=== PATIENT | male | born 1965 | race Caucasian/White ===

== ENCOUNTER 2022-02-13 11:42 | Outpatient (CLI) | payer OTHER, SELFPAY ==
--- NOTE | ~2022-02-13 | NM_ITS ---
EXAMINATION: NM bone scan whole body DATE: 02/13/2022 14:47 INDICATION: Prostate cancer. Assess treatment. TECHNIQUE: 23.1 mCi Tc-99m HDP was administered intravenously. Delayed whole-body scintigrams were o btained. COMPARISON: There are no other imaging studies at our institution. No other outside imaging provided for comparison. FINDINGS: There are multiple nonarticular foci of mild to moderate increased uptake involving multiple ribs, at the right humeral head, bilateral coracoid processes, at the sternum, scattered in the pelvis and at small regions along the bilateral humeral and femoral diaphyses, all suspicious for metastatic disea se. More typical likely degenerative joint centered uptake at the bilateral acromioclavicular joints, right greater than left, tibia and medial aspect of the bilateral knees. Additional focus of mild up take posteriorly at the right calcaneus most likely enthesopathic. IMPRESSION: 1. Numerous foci of mild to moderate increased bone uptake with atypical nonarticular distributions w hich is suspicious for metastatic disease. Recommend correlation with either radiographs or CT imagin g. Reviewed, dictated and finalized at location A. IMPRESSION: 1. Numerous foci of mild to moderate increased bone uptake with atypical nonart icular distributions which is suspicious for metastatic disease. Recommend marce elation with either radiographs or CT imaging.
== END 2022-02-13 11:43 | disposition home or self-care (01) ==
DX: C61 Malignant neoplasm of prostate (principal); C41.9 Malignant neoplasm of bone and articular cartilage, unspecified
CPT/HCPCS: 78306; A9561

== ENCOUNTER 2022-02-14 13:02 | Outpatient (CLI) | payer OTHER, SELFPAY ==
--- NOTE | ~2022-02-14 | CT_ITS ---
EXAMINATION: CT chest abdomen pelvis w con DATE: 02/14/2022 13:55 INDICATION: Metastatic prostate cancer. TECHNIQUE: Computed tomography (CT) of the chest, abdomen, and pelvis was performed with 100 mL Omnip aque 300 intravenous contrast. Automated exposure control and iterative reconstruction technique were employed. The dose-length product was 817.37 mGy-cm. COMPARISON: Bone scan 02/13/2022 FINDINGS: CHEST CT: The lungs demonstrate minimal atelectasis. No pleural effusion. The heart size is normal. No pericard ial effusion. There is mild bilateral gynecomastia. There are widespread scattered sclerotic lesions in the bones. There is expansion of multiple ribs. ABDOMEN/PELVIS CT: There are cysts in the liver measuring up to 2.5 cm. The gallbladder, spleen, pancreas, adrenal gland s, and right kidney are normal. There are two 2 mm stones in left kidney. There is a left inguinal he rnia containing fat. There are no dilated loops of bowel. The appendix is normal. There is an umbilic al hernia containing fat. There are no pathologically enlarged lymph nodes. There is no free intraper itoneal fluid. There are innumerable scattered sclerotic lesions in the bones. IMPRESSION: 1. Widespread bone lesions, consistent with metastatic disease. Reviewed, dictated and finalized at location A.
[2022-02-14 13:48] LABS: Estimated Glomerular Filt Rate > 60
== END 2022-02-14 13:03 | disposition home or self-care (01) ==
DX: C41.9 Malignant neoplasm of bone and articular cartilage, unspecified (principal); C61 Malignant neoplasm of prostate
CPT/HCPCS: 71260; 74177; Q9967

== ENCOUNTER 2022-07-17 12:53 | Outpatient (CLI) | payer OTHER, SELFPAY ==
--- NOTE | ~2022-07-17 | DEXA_ITS ---
Bone Density Report Name: CRYSTAL COLE Age: 56 Sex: Male Ethnicity: White Date of : 1965 Indication: history of glucocorticoids; prior fracture; cancer; Referring Provider: WILL TSE Study: Bone densitometry was performed. Exam Date: July 17, 2022 Accession number: [id number] Bone Density: Region BMD T-score Z-score Classification AP Spine(L1-L4) 1.075 -0.1 0.4 Normal Femoral Neck (Left) 0.725 -1.5 -0.6 Osteopenia Total Hip (Left) 0.921 -0.7 -0.3 Normal Femoral Neck (Right) 0.722 -1.5 -0.6 Osteopenia Total Hip (Right) 0.870 -1.1 -0.7 Osteopenia Total Hip Mean 0.895 -0.9 -0.5 Normal World Health Organization criteria for BMD impression classify patients as: Normal (T-score at or above -1.0), Osteopenia (T-score between -1.0 and -2.5), or Osteoporosis (T-score at or below -2.5). 10-year Fracture Risk: FRAX not reported because: Prior hip or vertebral fracture Clinical Information Provided by Patient: Have had a previous hip or vertebral fracture Has had a low trauma fracture Has taken Glucocorticoids Has used the following medications: Calcium Has the following medical conditions: Cancer Patient maximum height was 72 No regular weight bearing exercise Drinks caffeinated beverages Impression: The patient has low bone mass, based on the Left Femoral Neck T-score. The patient has risk factors, including: previous fracture, history of glucocorticoid therapy. Discussion: INCREASED RISK OF FRACTURE DUE TO HISTORY OF LOW TRAUMA FRACTURE. The patient's previous fracture puts the patient at high risk of a future fracture. In untreated patients, the risk of osteoporotic fracture increases approximately two-fold for each 1.0 SD decrease in T-score. Low bone density is not the only risk factor for fracture; also consider factors such as patient's age, frailty or poor health, risk of falling, risk of injury, previous osteoporotic fracture, family history of osteoporosis, cigarette smoking, low body weight, etc. Not everyone with a low trauma fracture has osteoporosis; osteomalacia and other metabolic bone disorders should also be considered. Patients who have osteoporosis should be evaluated for specific diseases and conditions (secondary causes) that may cause or contribute to bone loss and fracture risk. National Osteoporosis Foundation (NOF) recommends pharmacologic intervention for patients with a prior low trauma hip or vertebral fracture regardless of BMD T-score. The patient should follow a healthful lifestyle (good nutrition with adequate calcium and vitamin D, and appropriate weight-bearing exercise). Follow-Up: Consider a repeat BMD and Vertebral Fracture Assessment (VFA) exam in 2 years or sooner if medically necessary, to reassess this patient's status. Reported by: KENY on
== END 2022-07-17 12:54 | disposition home or self-care (01) ==
PROVIDERS: PCP Internal Medicine
DX: Z13.820 Encounter for screening for osteoporosis (principal); M85.89 Other specified disorders of bone density and structure, multiple sites
CPT/HCPCS: 77080

== ENCOUNTER 2024-10-07 09:29 | Outpatient (CLI) | payer OTHER, SELFPAY ==
--- NOTE | ~2024-10-07 | CT_ITS ---
Clinical Indication: Prostate cancer CT Scan of the Chest, Abdomen, and Pelvis with Contrast: Technique: Contiguous sections were acquired throughout the chest, abdomen, and pelvis after intraven ous administration of 100 cc of Omnipaque 350. Dose reduction technique was used on this scan by uti lizing automated exposure control and iterative reconstruction technique. The dose-length product (DL P) was 661.08 mGy-cm. Comparison: 02/14/2022 Findings: There is no evidence of any significant mediastinal, hilar or axillary lymphadenopathy. The mediastin al soft tissues appear normal. There is no evidence of pleural or pericardial effusion. The lungs are clear. No pulmonary nodules or infiltrates are noted. Stable hepatic cyst. The spleen, pancreas, gallbladder, adrenals and right kidney are within normal l imits. 6 mm nonobstructing left renal stone present. No evidence of aortic aneurysm. No lymphadenopa thy. No bowel obstruction or bowel wall thickening. There is no evidence to suggest acute appendicitis. Urinary bladder is unremarkable. No definite pelvic mass identified. There is minimal heterogeneity osseous structures. Impression: Minimal heterogeneity of the osseous structures. Subtle underlying osseous metastatic disease is cons ideration. Correlate with clinical history, and possibly PSA levels as indicated. Consider MR imaging for more sensitive evaluation of marrow signal abnormalities, as indicated. 6 mm left renal stone. Reviewed, dictated and finalized at [facility]. Impression: Minimal heterogeneity of the osseous structures. Subtle underlying osseous meta static disease is consideration. Correlate with clinical history, and possibly PSA levels as indicated. Consider MR imaging for more sensitive evaluation of m arrow signal abnormalities, as indicated. 6 mm left renal stone.
--- OUTSIDE RECORDS SUMMARY | 2024-10-07 10:49 | XMS_ITS | Encounter Summary ---
Author Organization [facility] Address [address] [place] [address] Phone Care Team Providers Care Timber Harvester Operator Name Role Phone London Ramesh MD Primary Care Provider [phone] Niranjan David MD Unavailable [phone] Niranjan David MD Unavailable Provider, Unknown Primary Care Provider Unavaila ble Encounter Details Date Type Department Care Team (Late st Contact Info) Description 05/17/2020 Telephone [facility] [address] [address] Niranjan David MD [address] [place] [phone] Social History Tobacco Use Types Packs/Day Years Used Date Smoking Tobacco: Never Smokeless Tobacco: Never Alcohol Use Standard Drinks/Week Comments Not Currently 0 (1 standard drink = 0.6 oz pur e alcohol) PHQ-2 Answer Date Recorded PHQ-2 Score 0 03/24/2019 Sex and Gender Information Value Date Recorded Sex Assigned at Not on file Legal Sex Male 1:02 PM CDT Gender Identity Not on file Sexual Orientation Not on file COVID-19 Exposure Response Date Recorded In the last month, have you been in contact with someone who was confirmed or suspected to have Coronavirus / COVID-19? No / Unsure 04/20/2020 10:13 AM CDT documented as of this encounter Miscellaneous Notes * Telephone Encounter - Johanna Srivastava - 05/17/2020 9:07 AM CDT PATIENT RESCHEDULED HIS APPT TO NEXT WEEK HE HAS A SLIGHT COLD AND DID NOT WANT TO GIVE IT TO ANYONE. documented in this encounter Plan of Treatment Upcoming Encounters Date Type Department Care Team (Late st Contact Info) Description 12/23/2024 1:00 PM CDT Office Visit [facility] [address] [address] Niranjan David MD [address] [place] [phone] 12/23/2024 1:15 PM CDT Clinical Support [facility] [address] [address] Nurse, Cleo [place] documented as of this encounter Visit Diagnoses Not on filedocumented in this encounter Additional Health Concerns Assessment Noted Time PHQ-9 Depression Total Score: 0 04/20/20 20 11:01 AM CDT documented as of this encounter Care Teams Timber Harvester Operator Relationship Specialty Start Date End Date London Ramesh MD PCP - General Internal Medicine 03/17/19 12/03/22 Provider, Unknown UNKNOWN PCP - General 02/19/23 Niranjan David MD Consulting Physician Oncology 03/17/19 Niranjan David MD Consulting Physician Oncology 02/19/23 documented as of this encounter
--- OUTSIDE RECORDS SUMMARY | 2024-10-07 10:49 | XMS_ITS | Clinical Summary ---
Author Organization [facility] Address [address] [place] [address] Care Team Providers Care Brick Carrier Name Role Phone Niranjan David MD Primary Care Provider [phone] Social History Tobacco Use Types Packs/Day Years Used Date Smoking Tobacco: Never Assessed Sex and Gender Information Value Date Recorded Sex Assigned at Not on file Legal Sex Male 2:03 PM CDT Gender Identity Not on file Sexual Orientation Not on file Plan of Treatment Health Maintenance Due Date Last Done Comments Colorectal Cancer Screening Colonoscopy (10 Years) 1965 Annual Physical 1968 Hepatitis C 11/26/1983 DTaP, Tdap and Td Vaccines ( 1 - Tdap) 1984 Hepatitis B Vaccines (1 of 3 - 19+ 3-dose series) 1984 Zoster Vaccines (1 of 2) 11/26/2015 COVID-19 Vaccine ( - 2023-2 5 season) 2024 Influenza Adult (#1) 2024 Meningococcal B Vaccine Aged Out No l onger eligible based on patient's age to complete this topic Meningococcal Vaccine Aged Out No lily mariely eligible based on patient's age to complete this topic Pneumococcal Vaccine: Pediat rics (0 to 5 Years) and At-Risk Patients (6 to 64 Years) Aged Out No longer eligible b ased on patient's age to complete this topic RSV Immunizations Under 20 Months Aged Out No longer eligible based on patient's age to complete this topic Insurance [employer] Care Teams Brick Carrier Relationship Specialty Start Date End Date Niranjan David MD PCP - General HEMATOLOGY/ONCOLOGY 04/15/19
--- OUTSIDE RECORDS SUMMARY | 2024-10-07 10:49 | XMS_ITS ---
Author Organization [facility] Address [address] [place] [address] Phone Care Team Providers Care Bench Mechanic Name Role Phone Niranjan David MD Unavailable [phone] Niranjan David MD Unavailable [phone] Provider, Unknown Primary Care Provider Unavaila ble Active Problems Problem Noted Date Diagnosed Date Metastatic bone cancer 08/05/2019 Prostate cancer 03/18/2019 Current Treatment and Therapy Plans PROSTATE - LEUPROLIDE (LUPRON, ELIGARD), TRELSTAR, FIRMAGON - CCSCI* Plan Start Date:03/24/2019 Plan Provider:Niranjan David MD Linked Problems Prostate cancer (HCC) Treatment Medications Current Day (Day 1, Cycle 13 - Planned for 02/10/2025) No medications scheduled. No medications schedul ed. Past Treatment and Therapy Plans No past plan information found.
--- OUTSIDE RECORDS SUMMARY | 2024-10-07 10:49 | XMS_ITS | Encounter Summary ---
Author Organization [facility] Address [address] [place] [address] Phone Care Team Providers Care V Belt Skiver Name Role Phone London Ramesh MD Primary Care Provider [phone] Niranjan David MD Unavailable Niranjan David MD Unavailable [phone] Provider, Unknown Primary Care Provider Unavaila ble Encounter Details Date Type Department Care Team (Late st Contact Info) Description 06/28/2021 Telephone [facility] [address] [address] Niranjan David MD [address] [place] [phone] Social History Tobacco Use Types Packs/Day Years Used Date Smoking Tobacco: Never Smokeless Tobacco: Never Alcohol Use Standard Drinks/Week Comments Not Currently 0 (1 standard drink = 0.6 oz pur e alcohol) PHQ-2 Answer Date Recorded Total Score - Questions 1-9 0 04/28 Sex and Gender Information Value Date Recorded Sex Assigned at Not on file Legal Sex Male 1:02 PM CDT Gender Identity Not on file Sexual Orientation Not on file documented as of this encounter Miscellaneous Notes * Telephone Encounter - Munguia, Kayley L. - 06/28/2021 10:22 AM CST PATIENT CALLED AND RESCHEDULED APPT. PATIENT HAS A COLD. UCT RESPONSIBILITY LIAISON documented in this encounter Plan of Treatment Upcoming Encounters Date Type Department Care Team (Late st Contact Info) Description 12/23/2024 1:00 PM CDT Office Visit [facility] [address] [address] Niranjan David MD [address] [place] [phone] 12/23/2024 1:15 PM CDT Clinical Support [facility] [address] [address] Nurse, Cleo [place] documented as of this encounter Visit Diagnoses Not on filedocumented in this encounter Additional Health Concerns Assessment Noted Time PHQ-9 Depression Total Score: 0 05/17/20 21 11:43 AM CDT documented as of this encounter Care Teams V Belt Skiver Relationship Specialty Start Date End Date London Ramesh MD PCP - General Internal Medicine 03/17/19 12/03/22 Provider, Unknown UNKNOWN PCP - General 02/19/23 Niranjan David MD Consulting Physician Oncology 03/17/19 Niranjan David MD Consulting Physician Oncology 02/19/23 documented as of this encounter
--- OUTSIDE RECORDS SUMMARY | 2024-10-07 10:49 | XMS_ITS | Encounter Summary ---
Author Organization [facility] Address [address] [place] [address] Phone Care Team Providers Care Cutting Machine Tender Name Role Phone Niranjan David MD Unavailable Niranjan David MD Unavailable Provider, Unknown Primary Care Provider Unavaila ble Reason for Visit * Reason Comments Medication Refill Encounter Details Date Type Department Care Team (Late st Contact Info) Description 04/22/2023 Refill [facility] [place] [address] [facility] [address] [place] [address] Niranjan David MD [address] [place] [address] Medication Refill Social History Tobacco Use Types Packs/Day Years Used Date Smoking Tobacco: Never Smokeless Tobacco: Never Alcohol Use Standard Drinks/Week Comments Not Currently 0 (1 standard drink = 0.6 oz pur e alcohol) PHQ-2 Answer Date Recorded Total Score - Questions 1-9 0 01/26 Sex and Gender Information Value Date Recorded Sex Assigned at Not on file Legal Sex Male 1:02 PM CDT Gender Identity Not on file Sexual Orientation Not on file documented as of this encounter Miscellaneous Notes * Telephone Encounter - Dwight Mi, RN - 04/28/2023 10:26 AM CDT Refill request from pharmacy. Refill if appropriate. documented in this encounter Plan of Treatment Upcoming Encounters Date Type Department Care Team (Late st Contact Info) Description 12/23/2024 1:00 PM CDT Office Visit [facility] [address] [address] [address] Niranjan David MD [address] [place] [phone] 12/23/2024 1:15 PM CDT Clinical Support [facility] [address] [employer] [address] [address] Nurse, [facility] documented as of this encounter Visit Diagnoses Not on filedocumented in this encounter Additional Health Concerns Assessment Noted Time PHQ-9 Depression Total Score: 0 05/17/20 21 11:43 AM CDT documented as of this encounter Care Teams Cutting Machine Tender Relationship Specialty Start Date End Date Provider, Unknown UNKNOWN PCP - General 02/19/23 Niranjan David MD Consulting Physician Oncology 03/17/19 Niranjan David MD Consulting Physician Oncology 02/19/23 documented as of this encounter
--- OUTSIDE RECORDS SUMMARY | 2024-10-07 10:49 | XMS_ITS | Encounter Summary ---
Author Organization [facility] Address [address] [place] [address] Phone Care Team Providers Care Steam Conditioner Filling Name Role Phone Niranjan David MD Unavailable [phone] Niranjan David MD Unavailable [phone] Provider, Unknown Primary Care Provider Unavaila ble Reason for Visit * Reason Comments Medication Refill Encounter Details Date Type Department Care Team ([facility] Contact Info) Description 05/19/2023 Refill [facility] [place] [address] [place] [address] Niranjan David MD [address] [place] [phone] Medication Refill Social History Tobacco Use [...] Exposure Response Date Recorded In the last 10 days, have yo u been in contact with someone who was confirmed or suspected to have Coronavirus/COVID-19? No / Unsure 05/22/2023 1:37 PM CDT documented as of this encounter Functional Status * Question Answer Date of Assessment Author Little interest or pleasure in doing things Not at all 05/22/2023 1:47 PM CDT Radha Gerard CMA Feeling down, depressed, or hopeless Not at all 05/22/2023 1:47 PM CDT Radha Gerard CMA * Over the past 2 weeks, how often have you been bothered by any of the following problems? Question Answer Date of Assessment Author Patient Health Questionnaire -2 Score 0 05/22/2023 1:47 PM CDT Radha Gerard CMA documented as of this encounter Miscellaneous Notes * Telephone Encounter - Cristiane Garcia APRN, CNP - 05/19/2023 2:43 PM CDT Okay to refill. * Telephone Encounter - Angy Jaimes RN - 05/19/2023 1:55 PM CDT Refill request from pharmacy. Please fill if appropriate. documented in this encounter Plan of Treatment Upcoming Encounters Date Type Department Care Team (Late st Contact Info) Description 12/23/2024 1:00 PM CDT Office Visit [facility] [address] [address] [place] [address] Niranjan David MD [address] [place] [phone] 12/23/2024 1:15 PM CDT Clinical Support [facility] [address] [address] [place] [phone] Nurse, Cleo Cha documented as of this encounter Visit Diagnoses Diagnosis Prostate cancer (HCC) Malignant neoplasm of prostate documented in this encounter Additional Health Concerns Assessment Noted Time PHQ-9 Depression Total Score: 0 05/17/20 21 11:43 AM CDT documented as of this encounter Care Teams Steam Conditioner Filling Relationship Specialty Start Date End Date Provider, Unknown UNKNOWN PCP - General 02/19/23 Niranjan David MD Consulting Physician Oncology 03/17/19 Niranjan David MD Consulting Physician Oncology 02/19/23 documented as of this encounter
--- OUTSIDE RECORDS SUMMARY | 2024-10-07 10:49 | XMS_ITS | Encounter Summary ---
Author Organization [facility] Address [address] [place] [address] Phone Care Team Providers Care Core Microarchitect Name Role Phone London Ramesh MD Primary Care Provider [phone] Niranjan David MD Unavailable [phone] Niranjan David MD Unavailable [phone] Provider, Unknown Primary Care Provider Unavaila ble Reason for Visit * Reason Comments Medication Refill Encounter Details Date Type Department Care Team (Late st Contact Info) Description 04/15/2022 Refill [facility] [place] [address] [facility] [address] [place] [address] Niranjan David MD [address] [place] [address] Medication Refill Social History Tobacco [...] on file documented as of this encounter Plan of Treatment Upcoming Encounters Date Type Department Care Team (Late st Contact Info) Description 12/23/2024 1:00 PM CDT Office Visit [facility] [address] [address] [place] [address] [place] [address] Niranjan David MD [address] [place] [phone] 12/23/2024 1:15 PM CDT Clinical Support [facility] [address] [address] [facility] [address] [place] [address] Nurse, Cleo [place] documented as of this encounter Visit Diagnoses Diagnosis Prostate cancer (HCC) Malignant neoplasm of prostate documented in this encounter Additional Health Concerns Assessment Noted Time PHQ-9 Depression Total Score: 0 05/17/20 11:43 AM CDT documented as of this encounter Care Teams Core Microarchitect Relationship Specialty Start Date End Date London Ramesh MD PCP - General Internal Medicine 03/17/19 12/03/22 Provider, Unknown UNKNOWN PCP - General 02/19/23 Niranjan David MD Consulting Physician Oncology 03/17/19 Niranjan David MD Consulting Physician Oncology 02/19/23 documented as of this encounter
--- OUTSIDE RECORDS SUMMARY | 2024-10-07 10:49 | XMS_ITS | Encounter Summary ---
Author Organization [facility] Address [address] [place] [address] Phone Care Team Providers Care Adaptive Physical Education Teacher Name Role Phone Niranjan David MD Unavailable Niranjan David MD Unavailable [phone] Provider, Unknown Primary Care Provider Unavaila ble Reason for Visit * Reason Comments Medication Refill Encounter Details Date Type Department Care Team (Late Contact Info) Description 10/14/2023 Refill [facility] [place] [address] [facility] [address] [place] [address] Niranjan David MD [address] [place] [address] Medication Refill Social History Tobacco [...] Miscellaneous Notes * Telephone Encounter - Cristiane Donahue APRN, KAUR - 10/14/2023 9:22 AM CDT Okay to refill. * Telephone Encounter - Angy Jaimes, RN - 10/14/2023 9:03 AM CDT Refill request from pharmacy. Please fill if appropriate. documented in this encounter Plan of Treatment Upcoming Encounters Date Type Department Care Team (Late st Contact Info) Description 12/23/2024 1:00 PM CDT Office Visit [facility] [address] [facility] Eduardo [address] [address] Niranjan David MD [address] [place] [phone] 12/23/2024 1:15 PM CDT Clinical Support [facility] [address] [address] Nurse, Cleo [place] documented as of this encounter Visit Diagnoses Not on filedocumented in this encounter Additional Health Concerns Assessment Noted Time PHQ-9 Depression Total Score: 0 05/17/20 21 11:43 AM CDT documented as of this encounter Care Teams Adaptive Physical Education Teacher Relationship Specialty Start Date End Date Provider, Unknown UNKNOWN PCP - General 02/19/23 Niranjan David MD Consulting Physician Oncology 03/17/19 Niranjan David MD Consulting Physician Oncology 02/19/23 documented as of this encounter
--- OUTSIDE RECORDS SUMMARY | 2024-10-07 10:49 | XMS_ITS | Clinical Summary ---
Author Organization [facility] Address [address], [facility] [address] [place] [address] Phone Care Team Providers Care Advisory Software Engineer Name Role Phone Niranjan David MD Unavailable [phone] Niranjan David MD Unavailable Provider, Unknown Primary Care Provider Unavaila ble Allergies No known active allergies Medications cetirizine (ZYRTEC) 10 MG Tablet Take 10 mg by mouth. Active Calcium Carbonate-Vitam in D (CALTRATE 600+D PO) Take by mouth daily. Active potassium chloride SA (KLORCON M) 20 MEQ Tablet Controlled Release Take 1 Tablet by mouth daily. 5 Tablet 01/23/2024 Active predniSONE (DELTASONE) 5 MG TabletIndicatio ns:Prostate cancer (HCC) TAKE 1 TABLET BY MOUTH DAILY 90 Tablet 2 02/23/2024 Active abiraterone (ZYTIGA) 250 MG Tablet TAKE 4 TABLETS (1,000MG) BY MOUTH ONCE DAILY ON AN EMPTY STOMACH 1 HOUR BEFORE OR 2 HOURS AFTER A MEAL 120 Tablet 5 04/16/2024 Active Active Problems Problem Noted Date Diagnosed Date Metastatic bone cancer 08/05/2019 Prostate cancer 03/18/2019 Encounters Date Type Department Care Team Description 09/30/2024 1:30 PM PROJECTION WELDING MACHINE OPERATOR Office Visit [facility] [address] [address] Niranjan David MD Prostate cancer (HCC) (Primary Dx) 09/30/2024 10:45 AM PROJECTION WELDING MACHINE OPERATOR Lab [facility] [address] [address] Nurse, Cc [place] Prostate cancer (HCC) (Primary Dx) 09/30/2024 Travel 07/13/2024 Telephone [facility] [address] [place] [address] Niranjan David MD from Last 3 Months Family History Medical History Relation Name Comments Clotting Disorder Father Breast Cancer Mother Relation Name Status Comments Father Alive Mother Social History Tobacco Use Types Packs/Day Years Used Date Smoking Tobacco: Never Smokeless Tobacco: Never Tobacco Cessation:Counseling Given: Not Answered Alcohol Use Standard Drinks/Week Comments Not Currently 0 (1 standard drink = 0.6 oz pur e alcohol) PHQ-2 Answer Date Recorded Total Score - Questions 1-9 0 01/26 Sex and Gender Information Value Date Recorded Sex Assigned at Not on file Legal Sex Male 1:02 PM CDT Gender Identity Not on file Sexual Orientation Not on file Last Filed Vital Signs Vital Sign Reading Time Taken Comments Blood Pressure 120/70 09/30/2024 1:42 PM PROJECTION WELDING MACHINE OPERATOR Pulse 100 09/30/2024 1:42 PM PROJECTION WELDING MACHINE OPERATOR Temperature 36.9 C (98.5 F) 09/30/2024 1:42 PM PROJECTION WELDING MACHINE OPERATOR Respiratory Rate 18 07/08/2024 1:30 PM PROJECTION WELDING MACHINE OPERATOR Oxygen Saturation 98% 09/30/2024 1:42 PM PROJECTION WELDING MACHINE OPERATOR Inhaled Oxygen Concentration - - Weight 84.8 kg (187 lb) 09/30/2024 1:42 PM PROJECTION WELDING MACHINE OPERATOR Height 180.3 cm (5' 11 ) 07/08/2024 1:30 PM PROJECTION WELDING MACHINE OPERATOR Body Mass Index 26.08 07/08/2024 1:30 PM PROJECTION WELDING MACHINE OPERATOR Plan of Treatment Upcoming Encounters Date Type Department Care Team (Late st Contact Info) Description 12/23/2024 1:00 PM CDT Office Visit [facility] [address] [address] Niranjan David MD [address] [place] [address] 12/23/2024 1:15 PM CDT Clinical Support [facility] [address] [place] [address] Nurse, Cc [facility] Due Date Last Done Comments Hepatitis C Virus (HCV) Screening 1965 TdaP Immunization 1965 SARS-COV-2 Immunization (#1) 1970 Hepatitis B Immunization (1 of 3 - 19+ 3-dose series) 1984 Pneumococcal Immunization (50+ years) (1 of 2 - PCV) 1984 Zoster Immunization (1 of 2) 1984 Colonoscopy 2010 Colorectal Cancer Screening 2010 Cologuard 11/26/2015 Immunochemical Fecal Occult Blood 11/26/2015 Influenza Immunization (#1) 2024 Respiratory Syncytial Virus (RSV) Immunization (Adult) (1 - 1-dose 75+ series) 2040 PSA Discussion Completed 09/30/2024, 06/27, 04/15/2024, Additional history exists Meningococcal Immunization (ACWY) Aged Out No longer eligible based on patient's age to complete this topic Rotavirus Immunization Aged Out No lo nger eligible based on patient's age to complete this topic Procedures Procedure Name Priority Date/Time Associated Diagnosis Comments CBC WITH AUTO DIFF OH Routine 09/30/2024 3:50 PM PROJECTION WELDING MACHINE OPERATOR CMP (COMPREHENSIVE METABOLIC PANEL) Routine 09/30/2024 3:50 PM PROJECTION WELDING MACHINE OPERATOR Prostate cancer (HCC) LACTATE DEHYDROGENASE (LD) Routine 09/30/2024 3:50 PM PROJECTION WELDING MACHINE OPERATOR Prostate cancer (HCC) PSA DIAGNOSTIC,TOTAL Routine 09/30/2024 3:50 PM PROJECTION WELDING MACHINE OPERATOR Prostate cancer (HCC) TESTOSTERONE Routine 09/30/2024 3:50 PM PROJECTION WELDING MACHINE OPERATOR Prostate cancer (HCC) from Last 3 Months Results * (ABNORMAL) CBC WITH AUTO DIFF OH (09/30/2024 3:50 PM PROJECTION WELDING MACHINE OPERATOR) WBC 6.6 4.0 - 10.0 10*3/uL [employer] [facility] HGB 14.4 13.7 - 17.5 g/dL [employer] [facility] HCT 43.0 40.1 - 51.0 % [employer] [facility] PLT 187 163 - 369 10*3/uL [employer] [facility] MPV 11.2 9.4 - 12.4 fL [employer] [facility] RBC 4.62(L) 4.63 - 6.08 10*6/uL [employer] [facility] MCV 93 79 - 95 fL [employer] [facility] MCH 31.2 25.6 - 32.2 pg [employer] [facility] MCHC 33.5 32.2 - 36.5 g/dL [employer] [facility] RDW 12.9 11.6 - 14.4 % [employer] Neutrophils % 69.6(H) 36.0 - 66.0 % [employer] Lymphocytes % 21.2 19.0 - 40.0 % [employer] Monocytes % 7.2 4.1 - 12.1 % [facility] Eosinophils % 0.9 0.0 - 3.5 % [facility] Basophils % 0.8 0.0 - 1.0 % [employer] Absolute Neutrophils 4.6 1.4 - 6.6 10*3/uL [facility] Absolute Lymphocytes 1.4 0.8 - 4.0 10*3/uL [employer] [facility] Absolute Monocytes 0.5 0.2 - 1.2 10*3/uL [facility] Absolute Eosinophils 0.1 0.0 - 0.4 10*3/uL [facility] Absolute Basophils 0.1 0.0 - 0.1 10*3/uL [facility] 09/30/2024 3:50 PM PROJECTION WELDING MACHINE OPERATOR us Niranjan David MD LAB SEND OUTS Final Resul t [facility] [address] [place] [address], [place] [phone] * (ABNORMAL) TESTOSTERONE (09/30/2024 3:50 PM PROJECTION WELDING MACHINE OPERATOR) TESTOSTERONE, SERUM <3(L) 264 - 916 NG/DL [facility] Comment: ADULT MALE REFERENCE INTERVAL IS BASED ON A POPULATION OF HEALTHY NONOBESE MALES (BMI <30) BETWEEN 19 AND 39 YEARS OLD. ELISEO HAWLEY.AL. JCEM 2017,102;[id number]. PMID: [id number]. Blood 09/30/2024 3:50 PM PROJECTION WELDING MACHINE OPERATOR Narrative [facility] - 10/01/2024 11:08 AM PROJECTION WELDING MACHINE OPERATOR TESTING PERFORMED AT: [] [facility], [address] [place] [address], [address], PHONE: [phone], PHARMACY CARE COORDINATOR: GALE BARAHONA, PHD Release to patient->Immediate us Niranjan David MD CHEMISTRY ORDERABLES Final Result Performing Organization Address [facility] Co de Phone Number [facility] Cancer Care [address] [place] [address], [place] [phone] * PSA DIAGNOSTIC,TOTAL (09/30/2024 3:50 PM PROJECTION WELDING MACHINE OPERATOR) PSA 0.13 0.00 - 4.00 ng/mL [facility] Comment: Debbie Paramagnetic Particle Chemiluminescent Immunoassay Method. Standardized against the WHO standard. Blood 09/30/2024 3:50 PM PROJECTION WELDING MACHINE OPERATOR Brian [facility] - 10/01/2024 2:14 PM PROJECTION WELDING MACHINE OPERATOR Release to patient->Immediate us Niranjan David MD CHEMISTRY ORDERABLES Final Result Performing Organization Address [facility] Co de Phone Number [facility] Cancer Care [address] [place] [address], [place] [phone] * (ABNORMAL) LACTATE DEHYDROGENASE (LD) (09/30/2024 3:50 PM PROJECTION WELDING MACHINE OPERATOR) LDH 122(L) 140 - 271 U/L [facility] Blood 09/30/2024 3:50 PM PROJECTION WELDING MACHINE OPERATOR Narrative [employer] [facility] - 10/01/2024 9:41 AM PROJECTION WELDING MACHINE OPERATOR Release to patient->Immediate Niranjan David MD CHEMISTRY ORDERABLES Final Result [employer] [facility] [address] [place] [address], * CMP (COMPREHENSIVE METABOLIC PANEL) (09/30/2024 3:50 PM PROJECTION WELDING MACHINE OPERATOR) Glucose 101 70 - 105 mg/dL [facility] Blood Urea Nitrogen 16 7 - 25 mg/dL [facility] Creatinine 0.8 0.7 - 1.3 mg/dL [facility] Sodium 140 136 - 145 mEq/L [facility] Potassium 3.8 3.5 - 5.1 mEq/L [facility] Chloride 105 98 - 107 mEq/L [facility] Bicarbonate 24 21 - 31 mEq/L [facility] Total Bilirubin 0.5 0.3 - 1.0 mg/dL [facility] [employer] [facility] Alk. Phosphatase 82 34 - 104 U/L [facility] Aspartate Aminotransferase 13 13 - 39 U/L [facility] [employer] [facility] Alanine Aminotransferase 12 7 - 52 U/L [facility] Total Protein 7.1 6.4 - 8.9 g/dL [facility] Albumin 4.4 3.5 - 5.7 g/dL [facility] [employer] [facility] Calcium 9.7 8.6 - 10.3 mg/dL [facility] [employer] [facility] Anion Gap 14.8 7.0 - 15.0 mEq/L [facility] Globulin 2.7 2.0 - 3.5 g/dL [facility] EGFR 102 >60 ml/min/1. 73m2 [facility] Comment: This eGFR is calculated using 2020 CKD-EPI Creatinine equation without race modifier based on the NKF-ASN task force recommendations Blood 09/30/2024 3:50 PM PROJECTION WELDING MACHINE OPERATOR Narrative [facility] - 10/01/2024 9:40 AM PROJECTION WELDING MACHINE OPERATOR Release to patient->Immediate IS THE PATIENT REQUIRED TO BE FASTING FOR 8 HOURS?->No us Niranjan David MD CHEMISTRY ORDERABLES Final Result [facility] [facility] [place] [address], from Last 3 Months Insurance MEDICAID [employer] Care Teams Advisory Software Engineer Relationship Specialty Start Date End Date Provider, Unknown UNKNOWN PCP - General 02/19/23 Niranjan David MD Consulting Physician Oncology 03/17/19 Niranjan David MD Consulting Physician Oncology 02/19/23
--- OUTSIDE RECORDS SUMMARY | 2024-10-07 10:49 | XMS_ITS | Encounter Summary ---
Author Organization [facility] Address [address] [place] [address] Phone Care Team Providers Care Edge Bander Operator Name Role Phone London Ramesh MD Primary Care Provider [phone] Niranjan David MD Unavailable Niranjan David MD Unavailable Provider, Unknown Primary Care Provider Unavaila ble Reason for Visit * Reason Comments Medication Refill Encounter Details Date Type Department Care Team (Late st Contact Info) Description 10/22/2022 Refill [facility] [address] [facility] [address] [place] [address] Niranjan David MD [address] [place] [address] Medication Refill Social History Tobacco [...] Telephone Encounter - Dwight Mi, RN - 10/22/2022 10:56 AM CDT Refill request. Refill if appropriate. documented in this encounter Plan of Treatment Upcoming Encounters Date Type Department Care Team (Late st Contact Info) Description 12/23/2024 1:00 PM CDT Office Visit [facility] [address] [address] [employer] [address] [place] [address] Niranjan David MD [address] [place] [address] 12/23/2024 1:15 PM CDT Clinical Support [facility] [address] [address] [address] Nurse, [facility] documented as of this encounter Visit Diagnoses Not on filedocumented in this encounter Additional Health Concerns Assessment Noted Time PHQ-9 Depression Total Score: 0 05/17/20 21 11:43 AM CDT documented as of this encounter Care Teams Edge Bander Operator Relationship Specialty Start Date End Date London Ramesh MD PCP - General Internal Medicine 03/17/19 12/03/22 Provider, Unknown UNKNOWN PCP - General 02/19/23 Niranjan David MD Consulting Physician Oncology 03/17/19 Niranjan David MD Consulting Physician Oncology 02/19/23 documented as of this encounter
== END 2024-10-07 09:30 | disposition home or self-care (01) ==
PROVIDERS: PCP Internal Medicine
DX: C61 Malignant neoplasm of prostate (principal)
CPT/HCPCS: 71260; 74177; Q9967

== ENCOUNTER 2024-12-30 16:11 | Emergency (ER) | payer OTHER, SELFPAY ==
[2024-12-30] VITALS (8 sets, daily range): BP systolic 130–190; BP diastolic 69–106; PULSE 77–110; RESP 11–21; TEMP 36.8–37; O2SAT 94–100
--- NOTE | ~2024-12-30 | CT_ITS ---
CT abdomen pelvis wo con Ordering provider: Delta Charles MD History: 59 years Male with . right flank pain . Comparison: October 07, 2024 Technique: CT abdomen and pelvis without IV and without oral contrast. Automated exposure control and iterative reconstruction technique were employed. The dose-length product was 560.71 mGy-cm. Findings: VISUALIZED LOWER CHEST: Nodule in the lingula measuring 5 mm. 6 months follow-up CT is advised. Depen dent atelectatic changes. Otherwise, Normal. UPPER ABDOMINAL ORGANS: Liver: Hypodensities in the right lobe of the liver which are unchanged from previous examination. Gallbladder: Normal. Spleen: Normal. Stomach/duodenum: Normal. Pancreas: Normal. Adrenals: Normal. Kidneys: Stone in the right lower ureter near to the ureterovesical junction with the right hydrouret er and moderate hydronephrotic changes. Tiny stone in the right kidney mid and lower pole. Tiny stone in the left kidney midpole. Stone in the left kidney lower pole measuring 6 mm. PELVIC ORGANS: The bladder is underfilled with thickened wall. Evaluation for cystitis advised. BOWEL AND MESENTERY: Colon: Mild sigmoid diverticulosis without diverticulitis. Normal appendix. Small Bowel: Normal. No obstruction. Peritoneum/mesentery: No free air or free fluid. No mesenteric lymphadenopathy. RETROPERITONEUM: Mild atheromatous disease of the abdominal aorta. No retroperitoneal lymphadenopat hy. MUSCULOSKELETAL: Superficial soft tissues: The superficial soft tissues are normal. Bones: Age appropriate degenerative changes of the spine. IMPRESSION: 1. Stone in the right lower ureter with right hydronephrotic changes. 2. Bilateral kidney stones. 3. Thickened wall of the urinary bladder which may indicate cystitis. Further evaluation advised. 4. Hepatic cysts unchanged from previous examination. Reviewed, dictated and finalized at location A.
--- NOTE | ~2024-12-30 | XR_ITS ---
XR abdomen/kub 1V Ordering provider: Delta Charles MD History: . stone . Comparison: None. FINDINGS: BOWEL: Nonobstructive bowel gas pattern. ORGANOMEGALY: None. SIGNIFICANT PATHOLOGIC CALCIFICATIONS: None. Gases overlying both kidneys OTHER: No free air is seen under the diaphragm. IMPRESSION: NO ACUTE ABDOMINAL FINDINGS. No definite stones seen.If still suspicious noncontrast CT is better for evaluation Reviewed, dictated and finalized at location A. IMPRESSION: NO ACUTE ABDOMINAL FINDINGS. No definite stones seen.If still suspicious noncontrast CT is better for evalua tion
--- OUTSIDE RECORDS SUMMARY | 2024-12-30 16:13 | XMS_ITS | Encounter Summary ---
Author Organization [facility] Address [address] [place] [address] Phone Care Team Providers Care Industrial Engineer Name Role Phone Niranjan David MD Unavailable [phone] Niranjan David MD Unavailable Provider, Unknown Primary Care Provider Unavaila ble Reason for Visit * Reason Comments Medication Refill Encounter Details Date Type Department Care Team (Late Contact Info) Description 10/14/2023 Refill [facility] [address] [facility] [address] [place] [address] Niranjan David MD [address] [place] [address] Medication Refill Social History Tobacco [...] Care Team (Late st Contact Info) Description 03/17/2025 1:15 PM CDT Office Visit [facility] [address] [employer]AN[employer] Currency CloudKAISER FOUND[facility] HOSPITALL[facility] Eduardo [address] [address] Niranjan David MD [address] [place] [phone] 06/09/2025 1:00 PM ASPHALT HEATER OPERATOR Clinical Support [facility] [address] [address] Nurse, Cleo Morehouse documented as of this encounter Visit Diagnoses Not on filedocumented in this encounter Additional Health Concerns Assessment Noted Time PHQ-9 Depression Total Score: 0 05/17/20 21 11:43 AM CDT documented as of this encounter Care Teams Industrial Engineer Relationship Specialty Start Date End Date Provider, Unknown UNKNOWN PCP - General 02/19/23 Niranjan David MD Consulting Physician Oncology 03/17/19 Niranjan David MD Consulting Physician Oncology 02/19/23 documented as of this encounter
--- OUTSIDE RECORDS SUMMARY | 2024-12-30 16:13 | XMS_ITS ---
Author Organization [facility] Address [address], [address] [place] [address] Phone Care Team Providers Care Electrical Design Engineer Name Role Phone Niranjan David MD Unavailable [phone] Niranjan David MD Unavailable [phone] Provider, Unknown Primary Care Provider Unavaila ble Active Problems Problem Noted Date Diagnosed Date Elevated blood pressure reading 12/23/2024 Metastatic bone cancer 08/05/2019 Prostate cancer 03/18/2019 Current Treatment and Therapy Plans PROSTATE - LEUPROLIDE (LUPRON, ELIGARD), DRAGAN CISNEROS - CCSCI* Plan Start Date:03/24/2019 Plan Provider:Niranjan David MD Linked Problems Prostate cancer (HCC) Treatment Medications Current Day (Day 1, Cycle 14 - Planned for 07/29/2025) No medications scheduled. No medications schedul ed. Past Treatment and Therapy Plans No past plan information found.
--- OUTSIDE RECORDS SUMMARY | 2024-12-30 16:13 | XMS_ITS | Encounter Summary ---
Author Organization [facility] Address [address] [place] [address] Phone Care Team Providers Care Cloud Systems Architect Name Role Phone London Ramesh MD Primary Care Provider [phone] Niranjan David MD Unavailable Niranjan David MD Unavailable Provider, Unknown Primary Care Provider Unavaila ble Encounter Details Date Type Department Care Team (Late st Contact Info) Description 05/17/2020 Telephone [facility] [address] [address] Niranjan David MD [address] [place] [phone] Social History Tobacco Use Types Packs/Day [...] PM CDT Office Visit [facility] [address] [address] [address] Niranjan David MD [address] [place] [phone] 06/09/2025 1:00 PM CHILD ATTENDANT Clinical Support [facility] [address] [address] Nurse, Cleo Starke documented as of this encounter Visit Diagnoses Not on filedocumented in this encounter Additional Health Concerns Assessment Noted Time PHQ-9 Depression Total Score: 0 04/20/20 20 11:01 AM CDT documented as of this encounter Care Teams Cloud Systems Architect Relationship Specialty Start Date End Date London Ramesh MD PCP - General Internal Medicine 03/17/19 12/03/22 Provider, Unknown UNKNOWN PCP - General 02/19/23 Niranjan David MD Consulting Physician Oncology 03/17/19 Niranjan David MD Consulting Physician Oncology 02/19/23 documented as of this encounter
--- OUTSIDE RECORDS SUMMARY | 2024-12-30 16:13 | XMS_ITS | Encounter Summary ---
Author Organization [facility] Address [address] [place] [address] Phone Care Team Providers Care Screen Printing Loader Unloader Name Role Phone Niranjan David MD Unavailable [phone] Niranjan David MD Unavailable Provider, Unknown Primary Care Provider Unavaila ble Reason for Visit * Reason Comments Medication Refill Encounter Details Date Type Department Care Team ([facility] Contact Info) Description 05/19/2023 Refill [facility] [place] [address] [place] [address] Niranjan David MD [address] [place] [phone] Medication Refill Social History Tobacco Use [...] PM CDT Office Visit [facility] [address] [address] [address] Niranjan David MD [address] [place] [phone] 06/09/2025 1:00 PM EVAPORATOR Clinical Support [facility] [address] [address] [address] Nurse, Cleo Cha documented as of this encounter Visit Diagnoses Diagnosis Prostate cancer (HCC) Malignant neoplasm of prostate documented in this encounter Additional Health Concerns Assessment Noted Time PHQ-9 Depression Total Score: 0 05/17/20 21 11:43 AM CDT documented as of this encounter Care Teams Screen Printing Loader Unloader Relationship Specialty Start Date End Date Provider, Unknown UNKNOWN PCP - General 02/19/23 Niranjan David MD Consulting Physician Oncology 03/17/19 Niranjan David MD Consulting Physician Oncology 02/19/23 documented as of this encounter
--- OUTSIDE RECORDS SUMMARY | 2024-12-30 16:13 | XMS_ITS | Encounter Summary ---
Author Organization [facility] Address [address] [place] [address] Phone Care Team Providers Care Mica Layer Name Role Phone London Ramesh MD Primary Care Provider [phone] Niranjan David MD Unavailable Niranjan David MD Unavailable [phone] Provider, Unknown Primary Care Provider Unavaila ble Reason for Visit * Reason Comments Medication Refill Encounter Details Date Type Department Care Team (Late st Contact Info) Description 10/22/2022 Refill [facility] [address] [facility] [address] [place] [address] Niranjan David MD [address] [place] [address] Medication Refill Social History Tobacco [...] PM CDT Office Visit [facility] [address] NATANBromiumER XirrusE [address] [place] [address] Niranjan David MD [address] [place] [phone] 06/09/2025 1:00 PM SUPPORT REPRESENTATIVE Clinical Support [facility] [address] [address] Nurse, [facility] documented as of this encounter Visit Diagnoses Not on filedocumented in this encounter Additional Health Concerns Assessment Noted Time PHQ-9 Depression Total Score: 0 05/17/20 21 11:43 AM CDT documented as of this encounter Care Teams Mica Layer Relationship Specialty Start Date End Date London Ramesh MD PCP - General Internal Medicine 03/17/19 12/03/22 Provider, Unknown UNKNOWN PCP - General 02/19/23 Niranjan David MD Consulting Physician Oncology 03/17/19 Niranjan David MD Consulting Physician Oncology 02/19/23 documented as of this encounter
--- OUTSIDE RECORDS SUMMARY | 2024-12-30 16:13 | XMS_ITS | Encounter Summary ---
Author Organization [facility] Address [address] [place] [address] Phone Care Team Providers Care Supervisor White Sugar Name Role Phone London Ramesh MD Primary Care Provider [phone] Niranjan David MD Unavailable [phone] Niranjan David MD Unavailable Provider, Unknown Primary Care Provider Unavaila ble Reason for Visit * Reason Comments Medication Refill Encounter Details Date Type Department Care Team (Late st Contact Info) Description 04/15/2022 Refill [facility] [address] [facility] [address] [place] [address] Niranjan David MD [address] [place] [address] Medication Refill Social History Tobacco [...] PM CDT Office Visit [facility] [address] [place] [address] Niranjan David MD [address] [place] [phone] 06/09/2025 1:00 PM MECHANICAL ENGINEERING LECTURER Clinical Support [facility] [address] [facility] [address] [address] Nurse, Cleo Rogers documented as of this encounter Visit Diagnoses Diagnosis Prostate cancer (HCC) Malignant neoplasm of prostate documented in this encounter Additional Health Concerns Assessment Noted Time PHQ-9 Depression Total Score: 0 05/17/20 11:43 AM CDT documented as of this encounter Care Teams Supervisor White Sugar Relationship Specialty Start Date End Date London Ramesh MD PCP - General Internal Medicine 03/17/19 12/03/22 Provider, Unknown UNKNOWN PCP - General 02/19/23 Niranjan David MD Consulting Physician Oncology 03/17/19 Niranjan David MD Consulting Physician Oncology 02/19/23 documented as of this encounter
--- OUTSIDE RECORDS SUMMARY | 2024-12-30 16:13 | XMS_ITS | Encounter Summary ---
Author Organization [facility] Address [address] [place] [address] Phone Care Team Providers Care Groundhand Name Role Phone Niranjan Davdi MD Unavailable [phone] Niranjan David MD Unavailable [phone] Provider, Unknown Primary Care Provider Unavaila ble Reason for Visit * Reason Comments Medication Refill Encounter Details Date Type Department Care Team (Late st Contact Info) Description 04/22/2023 Refill [facility] [place] [address] [facility] [address] [place] [address] Niranjan David MD [address] [place] [address] Medication Refill Social History Tobacco [...] PM CDT Office Visit [facility] [address] [address] Niranjan David MD [address] [place] [phone] 06/09/2025 1:00 PM TECHNICAL SERVICES REP Clinical Support [facility] [address] [facility] [address] [address] Nurse, [facility] documented as of this encounter Visit Diagnoses Not on filedocumented in this encounter Additional Health Concerns Assessment Noted Time PHQ-9 Depression Total Score: 0 05/17/20 11:43 AM CDT documented as of this encounter Care Teams Groundhand Relationship Specialty Start Date End Date Provider, Unknown UNKNOWN PCP - General 02/19/23 Niranjan David MD Consulting Physician Oncology 03/17/19 Niranjan David MD Consulting Physician Oncology 02/19/23 documented as of this encounter
--- OUTSIDE RECORDS SUMMARY | 2024-12-30 16:14 | XMS_ITS | Encounter Summary ---
Author Organization [facility] Address [address] [place] [address] Phone Care Team Providers Care Vamp Presser Name Role Phone London Ramesh MD Primary Care Provider [phone] Niranjan David MD Unavailable Niranjan David MD Unavailable Provider, Unknown Primary Care Provider Unavaila ble Encounter Details Date Type Department Care Team (Late st Contact Info) Description 06/28/2021 Telephone [facility] [address] [address] Niranjan David MD [address] [place] [phone] Social History Tobacco Use Types Packs/Day [...] AND RESCHEDULED APPT. PATIENT HAS A COLD. PEDDLER documented in this encounter Plan of Treatment Upcoming Encounters Date Type Department Care Team (Late st Contact Info) Description 03/17/2025 1:15 PM CDT Office Visit [facility] [address] [address] Niranjan David MD [address] [place] [phone] 06/09/2025 1:00 PM FISH PEDDLER Clinical Support [facility] [address] [address] Nurse, Cleo Portage documented as of this encounter Visit Diagnoses Not on filedocumented in this encounter Additional Health Concerns Assessment Noted Time PHQ-9 Depression Total Score: 0 05/17/20 21 11:43 AM CDT documented as of this encounter Care Teams Vamp Presser Relationship Specialty Start Date End Date London Ramesh MD PCP - General Internal Medicine 03/17/19 12/03/22 Provider, Unknown UNKNOWN PCP - General 02/19/23 Niranjan David MD Consulting Physician Oncology 03/17/19 Niranjan David MD Consulting Physician Oncology 02/19/23 documented as of this encounter
--- OUTSIDE RECORDS SUMMARY | 2024-12-30 16:14 | XMS_ITS | Clinical Summary ---
Author Organization [facility] Address [address], [facility] [address] [place] [address] Phone Care Team Providers Care Clinical Partner Name Role Phone Niranjan David MD Unavailable [phone] Niranjan David MD Unavailable [phone] Provider, Unknown Primary Care Provider Unavaila ble Allergies No known active allergies Medications cetirizine (ZYRTEC) 10 MG Tablet Take 10 mg by mouth. Active Calcium Carbonate-Vitam in D (CALTRATE 600+D PO) Take by mouth daily. Active potassium chloride SA (KLORCON M) 20 MEQ Tablet Controlled Release Take 1 Tablet by mouth daily. 5 Tablet 01/23/2024 Active abiraterone (ZYTIGA) 250 MG Tablet TAKE 4 TABLETS (1,000MG) BY MOUTH ONCE DAILY ON AN EMPTY STOMACH 1 HOUR BEFORE OR 2 HOURS AFTER A MEAL 120 Tablet 5 10/18/2024 Active predniSONE (DELTASONE) 5 MG TabletIndicatio ns:Prostate cancer (HCC) TAKE 1 TABLET BY MOUTH DAILY 90 Tablet 2 11/24/2024 Active Active Problems Problem Noted Date Diagnosed Date Elevated blood pressure reading 12/23/2024 Metastatic bone cancer 08/05/2019 Prostate cancer 03/18/2019 Encounters Date Type Department Care Team Description 12/30/2024 Telephone [facility] [address] [address] Niranjan David MD 12/29/2024 Telephone [facility] [address] [address] Niranjan David MD 12/23/2024 1:15 PM CDT Clinical Support [facility] [address] [address] Nurse, [facility] Prostate cancer (HCC) (Primary Dx) 12/23/2024 1:00 PM CDT Office Visit [facility] [address] [address] Niranjan David MD Prostate cancer (HCC) (Primary Dx) 12/23/2024 Travel 11/24/2024 Refill [facility] [address] [address] Niranjan David MD Medication Refill 10/17/2024 Refill [facility] [address] [address] Jo Pichardo, DISTRIBUTION SALES MANAGER, COPYRIGHT CLERK Medication Refill 09/30/2024 1:30 PM SAFETY ENGINEER PRESSURE VESSELS Office Visit [facility] [address] [id number] Niranjan David MD Prostate cancer (HCC) (Primary Dx) 09/30/2024 10:45 AM SAFETY ENGINEER PRESSURE VESSELS Lab [facility] [address] [address] Nurse, [facility] [place] Prostate cancer (HCC) (Primary Dx) 09/30/2024 Travel from Last 3 Months Family History Medical [...] Sign Reading Time Taken Comments Blood Pressure 144/76 12/23/2024 1:20 PM CDT Pulse 98 12/23/2024 1:20 PM CDT Temperature 36.4 C (97.5 F) 12/23/2024 1:20 PM CDT Respiratory Rate 18 12/23/2024 1:20 PM CDT Oxygen Saturation 98% 12/23/2024 1:20 PM CDT Inhaled Oxygen Concentration - - Weight 85.4 kg (188 lb 3.2 oz) 12/23/2024 1:20 P M CDT Height 180.3 cm (5' 11) 12/23/2024 1:20 PM CDT Body Mass Index 26.25 12/23/2024 1:20 PM CDT Plan of Treatment Upcoming Encounters Date Type Department Care Team (Late st Contact Info) Description 03/17/2025 1:15 PM CDT Office Visit [facility] [address] [place] [address] Niranjan David MD [address] [place] [phone] 06/09/2025 1:00 PM SAFETY ENGINEER PRESSURE VESSELS Clinical Support [facility] [address] [address] [place] [address] Nurse, [facility] [place] [facility] Maintenance Due Date Last Done Comments Hepatitis C Virus (HCV) Screening 1965 TdaP Immunization 1965 SARS-COV-2 Immunization (#1) 1970 Hepatitis B Immunization (1 of 3 - 19+ 3-dose series) 1984 Pneumococcal Immunization (50+ years) (1 of 2 - PCV) 1984 Zoster Immunization (1 of 2) 1984 Colonoscopy 2010 Colorectal Cancer Screening 2010 Cologuard 11/26/2015 Immunochemical Fecal Occult Blood 11/26/2015 Influenza Immunization (Season Ended) 2025 Respiratory Syncytial Virus (RSV) Immunization (Adult) (1 - 1-dose 75+ series) 2040 PSA Discussion Completed 09/30/2024, 06/27, 04/15/2024, Additional history exists Human Papillomavirus (HPV) Immunization Aged Out No longer eligible based on patient's age to complete this topic Meningococcal Immunization (ACWY) Aged Out No longer eligible based on patient's age to complete this topic Rotavirus Immunization Aged Out No lo nger eligible based on patient's age to complete this topic Procedures Procedure Name Priority Date/Time Associated Diagnosis Comments CBC WITH AUTO DIFF OH Routine 09/30/2024 3:50 PM SAFETY ENGINEER PRESSURE VESSELS CMP (COMPREHENSIVE METABOLIC PANEL) Routine 09/30/2024 3:50 PM SAFETY ENGINEER PRESSURE VESSELS Prostate cancer (HCC) LACTATE DEHYDROGENASE (LD) Routine 09/30/2024 3:50 PM SAFETY ENGINEER PRESSURE VESSELS Prostate cancer (HCC) PSA DIAGNOSTIC,TOTAL Routine 09/30/2024 3:50 PM SAFETY ENGINEER PRESSURE VESSELS Prostate cancer (HCC) TESTOSTERONE Routine 09/30/2024 3:50 PM SAFETY ENGINEER PRESSURE VESSELS Prostate cancer (HCC) from Last 3 Months Results * (ABNORMAL) CBC WITH AUTO DIFF OH (09/30/2024 3:50 PM SAFETY ENGINEER PRESSURE VESSELS) WBC 6.6 4.0 - 10.0 10*3/uL [facility] HGB 14.4 13.7 - 17.5 g/dL [facility] HCT 43.0 40.1 - 51.0 % [facility] PLT 187 163 - 369 10*3/uL [facility] MPV 11.2 9.4 - 12.4 fL [facility] RBC 4.62(L) 4.63 - 6.08 10*6/uL [facility] MCV 93 79 - 95 fL [facility] MCH 31.2 25.6 - 32.2 pg [facility]INING DEVELOPER [facility] MCHC 33.5 32.2 - 36.5 g/dL [facility] RDW 12.9 11.6 - 14.4 % [facility] Neutrophils % 69.6(H) 36.0 - 66.0 % [facility] Lymphocytes % 21.2 19.0 - 40.0 % [facility] Monocytes % 7.2 4.1 - 12.1 % [facility] Eosinophils % 0.9 0.0 - 3.5 % [facility] Basophils % 0.8 0.0 - 1.0 % [facility] Absolute Neutrophils 4.6 1.4 - 6.6 10*3/uL [facility] Absolute Lymphocytes 1.4 0.8 - 4.0 10*3/uL [facility] Absolute Monocytes 0.5 0.2 - 1.2 10*3/uL [facility] Absolute Eosinophils 0.1 0.0 - 0.4 10*3/uL [facility] Absolute Basophils 0.1 0.0 - 0.1 10*3/uL [facility] 09/30/2024 3:50 PM SAFETY ENGINEER PRESSURE VESSELS Niranjan David MD LAB SEND OUTS Final Resul t [facility] [place] [address], * (ABNORMAL) TESTOSTERONE (09/30/2024 3:50 PM SAFETY ENGINEER PRESSURE VESSELS) TESTOSTERONE, SERUM <3(L) 264 - 916 NG/DL [facility] Comment: ADULT MALE REFERENCE INTERVAL IS BASED ON A POPULATION OF HEALTHY NONOBESE MALES (BMI <30) BETWEEN 19 AND 39 YEARS OLD. CHANDAN ET.AL. JCEM 2017,102;[id number]. PMID: [id number]. Blood 09/30/2024 3:50 PM SAFETY ENGINEER PRESSURE VESSELS Narrative [facility] - 10/01/2024 11:08 AM SAFETY ENGINEER PRESSURE VESSELS TESTING PERFORMED AT: [] [facility], [address] [place] [address], [place], [address], PHONE: [phone], MANAGER ENVIRONMENTAL HEALTH AND SAFETY: GALE BARAHONA, PHD Release to patient->Immediate us Niranjan David MD CHEMISTRY ORDERABLES Final Result Performing Organization Address [facility]/ZIP Co de Phone Number [facility] [address] [place] [address], [place] [phone] * PSA DIAGNOSTIC,TOTAL (09/30/2024 3:50 PM SAFETY ENGINEER PRESSURE VESSELS) PSA 0.13 0.00 - 4.00 ng/mL [facility] Comment: Debbie Paramagnetic Particle Chemiluminescent Immunoassay Method. Standardized against the WHO standard. Blood 09/30/2024 3:50 PM SAFETY ENGINEER PRESSURE VESSELS Narrative [facility] - 10/01/2024 2:14 PM SAFETY ENGINEER PRESSURE VESSELS Release to patient->Immediate us Niranjan David MD CHEMISTRY ORDERABLES Final Result Performing Organization Address [facility] Co de Phone Number [facility] [address] [place] [address], * (ABNORMAL) LACTATE DEHYDROGENASE (LD) (09/30/2024 3:50 PM SAFETY ENGINEER PRESSURE VESSELS) LDH 122(L) 140 - 271 U/L [facility] Blood 09/30/2024 3:50 PM SAFETY ENGINEER PRESSURE VESSELS Narrative [facility] - 10/01/2024 9:41 AM SAFETY ENGINEER PRESSURE VESSELS Release to patient->Immediate us Niranjan David MD CHEMISTRY ORDERABLES Final Result Performing Organization Address City/[facility]/ZIP Co de Phone Number [facility] [address] [place] [address], * CMP (COMPREHENSIVE METABOLIC PANEL) (09/30/2024 3:50 PM SAFETY ENGINEER PRESSURE VESSELS) Glucose 101 70 - 105 mg/dL [facility] Blood Urea Nitrogen 16 7 - 25 mg/dL [facility] Creatinine 0.8 0.7 - 1.3 mg/dL [facility] Sodium 140 136 - 145 mEq/L [facility] Potassium 3.8 3.5 - 5.1 mEq/L [facility] Chloride 105 98 - 107 mEq/L [facility] Bicarbonate 24 21 - 31 mEq/L [facility] Total Bilirubin 0.5 0.3 - 1.0 mg/dL [facility] Alk. Phosphatase 82 34 - 104 U/L [facility] Aspartate Aminotransferase 13 13 - 39 U/L [facility] Alanine Aminotransferase 12 7 - 52 U/L [facility] Total Protein 7.1 6.4 - 8.9 g/dL [facility] Albumin 4.4 3.5 - 5.7 g/dL [facility] Calcium 9.7 8.6 - 10.3 mg/dL [facility] Anion Gap 14.8 7.0 - 15.0 mEq/L [facility] Globulin 2.7 2.0 - 3.5 g/dL [facility] EGFR 102 >60 ml/min/1. 73m2 [facility] Comment: This eGFR is calculated using 2020 CKD-EPI Creatinine equation without race modifier based on the NKF-ASN task force recommendations Blood 09/30/2024 3:50 PM SAFETY ENGINEER PRESSURE VESSELS Narrative [facility] - 10/01/2024 9:40 AM SAFETY ENGINEER PRESSURE VESSELS Release to patient->Immediate IS THE PATIENT REQUIRED TO BE FASTING FOR 8 HOURS?->No Niranjan David MD CHEMISTRY ORDERABLES Final Result [facility] [place] [address], [place] [phone] from Last 3 Months Insurance MEDICAID [employer] Care Teams Clinical Partner Relationship Specialty Start Date End Date Provider, Unknown UNKNOWN PCP - General 02/19/23 Niranjan David MD Consulting Physician Oncology 03/17/19 Niranjan David MD Consulting Physician Oncology 02/19/23
--- OUTSIDE RECORDS SUMMARY | 2024-12-30 16:14 | XMS_ITS | Encounter Summary ---
Author Organization [facility] Address [address] [place] [address] Phone Care Team Providers Care Police Stenographer Name Role Phone Niranjan David MD Unavailable [phone] Niranjan David MD Unavailable Provider, Unknown Primary Care Provider Unavaila ble Encounter Details Date Type Department Care Team (Late st Contact Info) Description 12/29/2024 Telephone [facility] [address] [address] Niranjan David MD [address] [place] [address] Social History Tobacco Use Types Packs/Day [...] encounter Miscellaneous Notes * Telephone Encounter - Vivian Nayak RN - 12/29/2024 2:57 PM CDT Called pt- he states he is taking a hot bath with epsom salt and is feeling some relief. Pt states he would like to hold off on going to urgent care or getting an x-ray until he sees how he feels tomorrow. Advised pt to call tomorrow to update us. * Telephone Encounter - Vivian Nayak RN - 12/29/2024 2:56 PM CDT Images from the original note were not included. Niranjan David MD You; [facility] Nurse Pool48 minutes ago (2:07 PM) MW His PSA looks great, would go to urgent care, If he does not send for Xray of lumbar spine to startwith * Telephone Encounter - Vivian Nayak RN - 12/29/2024 1:59 PM CDT Patient called stating he is having low back pain so bad that it makes him feel like he could vomit. He helped a friend with some things around his house and feels he may be sore from that. He stateshe has some leftover Oxycodone from a few years ago he thought about taking. Advised pt to be evaluated in urgent care or ED for pain. Pt states he is going to discuss with his sister and then might go. documented in this encounter Plan of Treatment Upcoming Encounters Date Type Department Care Team (Late st Contact Info) Description 03/17/2025 1:15 PM CDT Office Visit [facility] [place] [address] [address] Niranjan David MD [address] [place] [phone] 06/09/2025 1:00 PM SENIOR NET WEB DEVELOPER Clinical Support [facility] [address] [address] [address] Nurse, Cleo Cha documented as of this encounter Visit Diagnoses Not on filedocumented in this encounter Additional Health Concerns Assessment Noted Time PHQ-9 Depression Total Score: 0 05/17/20 11:43 AM CDT documented as of this encounter Care Teams Police Stenographer Relationship Specialty Start Date End Date Provider, Unknown UNKNOWN PCP - General 02/19/23 Niranjan David MD Consulting Physician Oncology 03/17/19 Niranjan David MD Consulting Physician Oncology 02/19/23 documented as of this encounter
--- OUTSIDE RECORDS SUMMARY | 2024-12-30 16:14 | XMS_ITS | Encounter Summary ---
Author Organization [facility] Address [address] [place] [address] Phone Care Team Providers Care Television Camera Operator Name Role Phone Niranjan David MD Unavailable [phone] Niranjan David MD Unavailable Provider, Unknown Primary Care Provider Unavaila ble Encounter Details Date Type Department Care Team (Late st Contact Info) Description 12/30/2024 Telephone [facility] [address] [address] Niranjan David MD [address] [place] [phone] Social History Tobacco Use Types Packs/Day [...] encounter Miscellaneous Notes * Telephone Encounter - Samantha Sigala RN - 12/30/2024 3:38 PM CDT Received a call from patient stating he is having severe pain to his right side, lower back radiating to front right, rates pain a 10 on pain scale 0-10, also reports an episode of emesis this am andtwice during the night. Patient inquiring about pain medication, patient advised to go to the Emergency Room for evaluation. [facility] documented in this encounter Plan of Treatment Upcoming Encounters Date Type Department Care Team (Late st Contact Info) Description 03/17/2025 1:15 PM CDT Office Visit [facility] [address] NATANTouchTunes Interactive NetworksFAYE Site IntelligenceE [address] [address] Niranjan David MD [address] [place] [phone] 06/09/2025 1:00 PM CARPENTER RAILCAR Clinical Support [facility] [address] [address]E [address] [address] Nurse, Cleo Cha documented as of this encounter Visit Diagnoses Not on filedocumented in this encounter Additional Health Concerns Assessment Noted Time PHQ-9 Depression Total Score: 0 05/17/20 11:43 AM CDT documented as of this encounter Care Teams Television Camera Operator Relationship Specialty Start Date End Date Provider, Unknown UNKNOWN PCP - General 02/19/23 Niranjan David MD Consulting Physician Oncology 03/17/19 Niranjan David MD Consulting Physician Oncology 02/19/23 documented as of this encounter
--- NOTE | 2024-12-30 16:32 | ED.GENADULT ---
HPI - General Adult General Chief complaint: Back Pain/Injury Stated complaint: KIDNEY STONE? Time Seen by Provider: 12/30/24 16:15 History of Present Illness HPI narrative: 59-year-old male with history of prostate cancer presented to the emergency department for evaluation for worsening right flank pain. Patient states symptoms started approximately Friday night and have been worsening. Patient does report associated shortness of breath when the pain worsens and does have associated nausea. Patient has no prior history of kidney stones but does have family history of kidney stones. Related Data Allergies Allergy/AdvReac Type Severity Reaction Status Date / Time No Known Allergies Allergy Verified 12/30/24 16:39 Review of Systems Review of Systems: All systems reviewed & are unremarkable except as noted in HPI and below Exam Narrative: APPEARANCE: Uncomfortable appearing HEAD: normocephalic, atraumatic. EYES: PERRLA/EOMI, conjunctivae clear. NOSE: Normal no drainage EARS:TMS clear with good light reflex. THROAT: Pharynx clear, no exudate. NECK: Supple. No adenopathy, no masses. RESPIRATORY: Airway patent, respirations nonlabored. Clear to auscultation bilaterally, no rales, rhonchi, wheezing. CARDIOVASCULAR: Regular rate and rhythm without murmurs rubs or gallops. ABDOMINAL: Soft, nontender, nondistended, normal bowel sounds MUSCULOSKELETAL: Moves all extremities. Strength/ROM intact, No edema, No calf tenderness. NEURO: Alert. Cranial nerves II through XII intact. Grossly intact Course Vital Signs Vital signs: Vital Signs Temperature 98.6 F 12/30/24 16:25 Pulse Rate 110 H 12/30/24 16:25 Respiratory Rate 20 12/30/24 16:25 Blood Pressure 190/106 H 12/30/24 16:25 Pulse Oximetry 99 12/30/24 16:25 Oxygen Delivery Room Air 12/30/24 16:25 Temperature 98.2 F 12/30/24 20:00 Pulse Rate 89 12/30/24 20:00 Respiratory Rate 16 12/30/24 20:00 Blood Pressure 130/86 12/30/24 20:00 Pulse Oximetry 97 12/30/24 20:00 Oxygen Delivery Room Air 12/30/24 16:25 Medical Decision Making [facility] Narrative Medical decision making narrative: 59-year-old male present to the emergency department for evaluation for right flank pain. Patient is currently afebrile with no leukocytosis hemoglobin of 12.9. Patient's INR is 1.0. Patient does have potassium of 2.7 this was replaced was followed mEq p.o. and 20 mEq IV. Patient's urine was positive for blood but negative for infection. Patient's CT scan does show a right-sided ureteral calculi . Still was measured to be approximately 5 mm. Patient was provided Toradol for additional pain control and did feel improved. Patient family updated the results of the imaging plan for treatment for home and importance of a close follow-up with Urology. Patient was provided Flomax, pain medication and nausea medication for home. All questions concerns were addressed. Differential Diagnosis Differential Diagnosis: Class, diverticulitis, appendicitis, urinary tract infection, ureteral calculi Vital Signs Vital Signs: Vital Signs Temperature 98.6 F 12/30/24 16:25 Pulse Rate 110 H 12/30/24 16:25 Respiratory Rate 20 12/30/24 16:25 Blood Pressure 190/106 H 12/30/24 16:25 Pulse Oximetry 99 12/30/24 16:25 Oxygen Delivery Room Air 12/30/24 16:25 Temperature 98.2 F 12/30/24 20:00 Pulse Rate 89 12/30/24 20:00 Respiratory Rate 16 12/30/24 20:00 Blood Pressure 130/86 12/30/24 20:00 Pulse Oximetry 97 12/30/24 20:00 Oxygen Delivery Room Air 12/30/24 16:25 Lab Data Lab results reviewed: Yes I reviewed the patient's lab results. 12/30/24 16:41 12/30/24 16:41 Labs: Lab Results 12/30/24 Range/Units 16:41 WBC 7.3 (4.5-10.0) K/mm3 RBC 4.14 L (4.6-6.20) M/mm3 Hgb 12.9 L (14.0-18.0) g/dL Hct 38.8 L (42.0-52.0) % MCV 93.7 (80-100) fl MCH 31.2 (26-34) pg MCHC 33.2 (32-36) g/dl RDW 13.0 (11.5-14.5) % Plt Count 181 (150-375) k/mm3 MPV 10.7 H (7.4-10.4) fl Immature Gran % (Auto) 0.3 (0-0.5) % Neut % (Auto) 68.7 (45.5-73.1) % Lymph % (Auto) 21.0 (18.3-44.2) % Foard % (Auto) 8.4 (2.6-8.5) % Eos % (Auto) 1.1 (0-4.4) % Baso % (Auto) 0.5 (0.2-1.2) % Lymph # (Auto) 1.53 (0.9-3.2) K/mm3 Foard # (Auto) 0.6 (0.1-0.6) K/mm3 Eos # (Auto) 0.1 (0-0.3) K/mm3 Baso # (Auto) 0.0 (0.0-0.1) K/mm3 Abs Immat Gran (auto) 0.02 (0.00-0.031) K/mm3 Absolute Neuts (auto) 5.0 (1.3-6.7) K/mm3 Absolute Nucleated RBC 0.000 (0.0-0.012) K/mm3 Nucleated RBC % 0.0 (0.0-0.2) % PT 13.1 (11.1-14.7) Seconds INR 1.0 APTT 25.3 (22.3-36.8) Seconds Sodium 141 (137-145) mmol/L Potassium 2.7 L* (3.4-5.0) mmol/L Chloride 108 H (98-107) mmol/L Carbon Dioxide 26 (22-30) mmol/L Anion Gap 7 (4-12) mmol/L BUN 10 (9-20) mg/dL Creatinine 0.88 (0.7-1.3) mg/dL Estim Creat Clear Calc 84 ml/min Estimated GFR > 60 (59 - ) Glucose 134 H (65-110) mg/dL Calcium 9.3 (8.4-10.2) mg/dL Total Bilirubin 0.7 (0.2-1.3) mg/dL AST 44 (17-59) U/L ALT 37 (6-50) U/L Alkaline Phosphatase 76 (38-126) U/L Total Protein 6.9 (6.3-8.2) g/dL Albumin 3.9 (3.5-5.1) g/dL Urine Color Yellow (Yellow) Urine Appearance Clear (Clear) Urine pH 5.5 (5.0-9.0) Ur Specific [place] 1.033 (1.001-1.035) Urine Protein 1+ H (Negative) mg/dL Urine Glucose (UA) Negative (Negative) mg/dL Urine Ketones Trace H (Negative) mg/dL Ur Blood (Man) 2+ H (Negative) Urine Nitrate Negative (Negative) Urine Bilirubin Negative (Negative) Urine Urobilinogen 0.2 (<2.0) mg/dL Add Ur Microanalysis Reviewed Leukocyte Esterase Rfl Negative (Negative) DREA/UL Urine RBC 11-20 H (0-2) /hpf Urine WBC 0-5 (0-3) /hpf Ur Squamous Epith Cells None seen (Few) /hpf Urine Bacteria None seen /hpf Urine Casts 3-5 Urine Mucus Present /lpf Imaging Data Radiologist's impression: Impressions Abdomen/Pelvis CT 12/30/24 17:15 IMPRESSION: 1. Stone in the right lower ureter with right hydronephrotic changes. 2. Bilateral kidney stones. 3. Thickened wall of the urinary bladder which may indicate cystitis. Further evaluation advised. 4. Hepatic cysts unchanged from previous examination. Abdomen X-Ray 12/30/24 20:17 IMPRESSION: NO ACUTE ABDOMINAL FINDINGS. No definite stones seen.If still suspicious noncontrast CT is better for evaluation Discharge Plan Discharge Clinical Impression: Calculi, ureter Patient Disposition: Home Condition: Stable Instructions: Antibiotic Form, Kidney Stones (ED), How to Strain Your Urine (ED) Additional Instructions: Ibuprofen for pain control. Letha as needed for additional pain control. Flomax as directed to help you pass the stone. Zofran as needed for nausea control. Have close follow-up with Urology. Patient Language: Greenlandic Prescriptions: New hydrocodone-acetaminophen 5-325 mg tablet 1 tablet PO Q12H PRN (Reason: pain) Qty: 14 0RF tamsulosin [Flomax] 0.4 mg capsule 0.4 mg PO DAILY 14 Days Qty: 14 0RF ondansetron 4 mg tablet,disintegrating 4 mg PO Q8H PRN (Reason: nausea and vomiting) Qty: 14 0RF Follow-up/Referrals: True Tipton MD [Physician] - Joann,Niranjan Sanchez MD [Primary Care Provider] -
--- OUTSIDE RECORDS SUMMARY | 2024-12-30 16:40 | XMS_ITS | Encounter Summary ---
Author Organization [facility] Address [address] [place] [address] Phone Care Team Providers Care Poultry Helper Name Role Phone London Ramesh MD Primary Care Provider [phone] Niranjan David MD Unavailable Niranjan David MD Unavailable Provider, Unknown Primary Care Provider Unavaila ble Reason for Visit * Reason Comments Medication Refill Encounter Details Date Type Department Care Team (Late st Contact Info) Description 10/22/2022 Refill [facility] [address] [facility] [address] [place] [address] Niranjan David MD [address] [place] [address] Medication Refill Social History Tobacco [...] PM CDT Office Visit [facility] [address] NATANSHERPA assistantER fflapE BREA [address] [place] [address] Niranjan David MD [address] [place] [phone] 06/09/2025 1:00 PM RADIO PROGRAM DIRECTOR Clinical Support [facility] [address] [employer] [address] [address] Nurse, [facility] documented as of this encounter Visit Diagnoses Not on filedocumented in this encounter Additional Health Concerns Assessment Noted Time PHQ-9 Depression Total Score: 0 05/17/20 21 11:43 AM CDT documented as of this encounter Care Teams Poultry Helper Relationship Specialty Start Date End Date London Ramesh MD PCP - General Internal Medicine 03/17/19 12/03/22 Provider, Unknown UNKNOWN PCP - General 02/19/23 Niranjan David MD Consulting Physician Oncology 03/17/19 Niranjan David MD Consulting Physician Oncology 02/19/23 documented as of this encounter
--- OUTSIDE RECORDS SUMMARY | 2024-12-30 16:40 | XMS_ITS | Encounter Summary ---
Author Organization [facility] Address [address] [place] [address] Phone Care Team Providers Care Route Sales Driver Name Role Phone Niranjan David MD Unavailable [phone] Niranjan David MD Unavailable Provider, Unknown Primary Care Provider Unavaila ble Reason for Visit * Reason Comments Medication Refill Encounter Details Date Type Department Care Team (Late Contact Info) Description 10/14/2023 Refill [facility] [address] [facility] [address] [place] [address] Niranjan David MD [address] [place] [address] Medication Refill Social History Tobacco [...] PM CDT Office Visit [facility] [address] NATANBee WareST. [facility] CENTERLuis Eduardo [address] [address] Niranjan David MD [address] [place] [phone] 06/09/2025 1:00 PM PERFORMANCE IMPROVEMENT MANAGER Clinical Support [facility] [address] [address] Nurse, Cleo Blount documented as of this encounter Visit Diagnoses Not on filedocumented in this encounter Additional Health Concerns Assessment Noted Time PHQ-9 Depression Total Score: 0 05/17/20 21 11:43 AM CDT documented as of this encounter Care Teams Route Sales Driver Relationship Specialty Start Date End Date Provider, Unknown UNKNOWN PCP - General 02/19/23 Niranjan David MD Consulting Physician Oncology 03/17/19 Niranjan David MD Consulting Physician Oncology 02/19/23 documented as of this encounter
--- OUTSIDE RECORDS SUMMARY | 2024-12-30 16:40 | XMS_ITS | Encounter Summary ---
Author Organization [facility] Address [address] [place] [address] Phone Care Team Providers Care Bellows Tester Name Role Phone Niranjan David MD Unavailable [phone] Niranjan David MD Unavailable Provider, Unknown Primary Care Provider Unavaila ble Reason for Visit * Reason Comments Medication Refill Encounter Details Date Type Department Care Team ([facility] Contact Info) Description 05/19/2023 Refill [facility] [place] [address] [place] [address] Niranjan David MD [address] [place] [phone] Medication Refill Social History Tobacco Use [...] PM CDT Office Visit [facility] [address] [address] [address] Niranjan David MD [address] [place] [phone] 06/09/2025 1:00 PM OPERATIONAL REVIEW SERGEANT Clinical Support [facility] [address] [address] [address] Nurse, Cleo Cha documented as of this encounter Visit Diagnoses Diagnosis Prostate cancer (HCC) Malignant neoplasm of prostate documented in this encounter Additional Health Concerns Assessment Noted Time PHQ-9 Depression Total Score: 0 05/17/20 21 11:43 AM CDT documented as of this encounter Care Teams Bellows Tester Relationship Specialty Start Date End Date Provider, Unknown UNKNOWN PCP - General 02/19/23 Niranjan David MD Consulting Physician Oncology 03/17/19 Niranjan David MD Consulting Physician Oncology 02/19/23 documented as of this encounter
--- OUTSIDE RECORDS SUMMARY | 2024-12-30 16:40 | XMS_ITS | Encounter Summary ---
Author Organization [facility] Address [address] [place] [address] Phone Care Team Providers Care Rodeo Rider Name Role Phone Niranjan David MD Unavailable Niranjan David MD Unavailable Provider, Unknown Primary Care Provider Unavaila ble Encounter Details Date Type Department Care Team (Late st Contact Info) Description 12/30/2024 Telephone [facility] [address] [address] Niranjan David MD [address] [place] [phone] Social History Tobacco Use Types Packs/Day [...] evaluation. Patient reports he will go to [facility] for evaluation documented in this encounter Plan of Treatment Upcoming Encounters Date Type Department Care Team (Late st Contact Info) Description 03/17/2025 1:15 PM CDT Office Visit [facility] [address] NATANCitiusTechFAYE [employer] [address] [address] Niranjan David MD [address] [place] [phone] 06/09/2025 1:00 PM WATER TAXI DRIVER Clinical Support [facility] [address] [address] [address] Nurse, Cleo Cha documented as of this encounter Visit Diagnoses Not on filedocumented in this encounter Additional Health Concerns Assessment Noted Time PHQ-9 Depression Total Score: 0 05/17/20 11:43 AM CDT documented as of this encounter Care Teams Rodeo Rider Relationship Specialty Start Date End Date Provider, Unknown UNKNOWN PCP - General 02/19/23 Niranjan David MD Consulting Physician Oncology 03/17/19 Niranjan David MD Consulting Physician Oncology 02/19/23 documented as of this encounter
--- OUTSIDE RECORDS SUMMARY | 2024-12-30 16:40 | XMS_ITS | Encounter Summary ---
Author Organization [facility] Address [address] [place] [address] Phone Care Team Providers Care Laborer Adjustable Steel Joist Name Role Phone Niranjan David MD Unavailable [phone] Niranjan David MD Unavailable Provider, Unknown Primary Care Provider Unavaila ble Reason for Visit * Reason Comments Medication Refill Encounter Details Date Type Department Care Team (Late st Contact Info) Description 04/22/2023 Refill [facility] [place] [address] [facility] [address] [place] [address] Niranjan David MD [address] [place] [address] Medication Refill Social History Tobacco [...] PM CDT Office Visit [facility] [address] [address] [address] Niranjan David MD [address] [place] [phone] 06/09/2025 1:00 PM LABEL REWINDER Clinical Support [facility] [address] [address] Nurse, [facility] documented as of this encounter Visit Diagnoses Not on filedocumented in this encounter Additional Health Concerns Assessment Noted Time PHQ-9 Depression Total Score: 0 05/17/20 11:43 AM CDT documented as of this encounter Care Teams Laborer Adjustable Steel Joist Relationship Specialty Start Date End Date Provider, Unknown UNKNOWN PCP - General 02/19/23 Niranjan David MD Consulting Physician Oncology 03/17/19 Niranjan David MD Consulting Physician Oncology 02/19/23 documented as of this encounter
--- OUTSIDE RECORDS SUMMARY | 2024-12-30 16:40 | XMS_ITS | Clinical Summary ---
Author Organization [facility] Address [address], [facility] [address] [place] [address] Phone Care Team Providers Care Scraper Hand Name Role Phone Niranjan David MD Unavailable [phone] Niranjan David MD Unavailable [phone] Provider, Unknown Primary Care Provider Unavaila ble [...] Description 12/30/2024 Telephone [facility] [address] [address] Niranjan David MD 12/29/2024 Telephone [facility] [address] [address] Niranjan David MD 12/23/2024 1:15 PM CDT Clinical Support [facility] [place] [address] [address] Nurse, Cc [place] Prostate cancer (HCC) (Primary Dx) 12/23/2024 1:00 PM CDT Office Visit [facility] [place] [address] [address] Niranjan David MD Prostate cancer (HCC) (Primary Dx) 12/23/2024 Travel 11/24/2024 Refill [facility] [address] [address] Niranjan David MD Medication Refill 10/17/2024 Refill [facility] [address] [address] Jo Pichardo, TIRE MOLDER, GAS TORCH SOLDERER Medication Refill 09/30/2024 1:30 PM AGED OR DISABLED CARE WORKER Office Visit [facility] [place] [address] [phone] Niranjan David MD Prostate cancer (HCC) (Primary Dx) 09/30/2024 10:45 AM AGED OR DISABLED CARE WORKER Lab [facility] [address] [address] Nurse, Cc [place] Prostate cancer (HCC) (Primary Dx) 09/30/2024 Travel [...] PM CDT Office Visit [facility] [address] [place] [address] Niranjan David MD [address] [place] [phone] 06/09/2025 1:00 PM AGED OR DISABLED CARE WORKER Clinical Support [facility] [address] [address] [place] [address] Nurse, Cc [place] Health Maintenance Due Date Last Done Comments [...] AUTO DIFF [place] Routine 09/30/2024 3:50 PM AGED OR DISABLED CARE WORKER CMP (COMPREHENSIVE METABOLIC PANEL) Routine 09/30/2024 3:50 PM AGED OR DISABLED CARE WORKER Prostate cancer (HCC) LACTATE DEHYDROGENASE (LD) Routine 09/30/2024 3:50 PM AGED OR DISABLED CARE WORKER Prostate cancer (HCC) PSA DIAGNOSTIC,TOTAL Routine 09/30/2024 3:50 PM AGED OR DISABLED CARE WORKER Prostate cancer (HCC) TESTOSTERONE Routine 09/30/2024 3:50 PM AGED OR DISABLED CARE WORKER Prostate cancer (HCC) from Last 3 Months Results * (ABNORMAL) CBC WITH AUTO DIFF [place] (09/30/2024 3:50 PM AGED OR DISABLED CARE WORKER) WBC 6.6 4.0 - 10.0 10*3/uL [facility] HGB 14.4 13.7 - 17.5 g/dL [facility] HCT 43.0 40.1 - 51.0 % [facility] PLT 187 163 - 369 10*3/uL [facility] MPV 11.2 9.4 - 12.4 fL [facility] RBC 4.62(L) 4.63 - 6.08 10*6/uL [facility] MCV 93 79 - 95 fL [facility] MCH 31.2 25.6 - 32.2 pg [facility] MCHC 33.5 32.2 - 36.5 g/dL [facility] RDW 12.9 11.6 - 14.4 % [facility] Neutrophils % 69.6(H) 36.0 - 66.0 % [facility] Lymphocytes % 21.2 19.0 - 40.0 % [facility] Monocytes % 7.2 4.1 - 12.1 % [facility] Eosinophils % 0.9 0.0 - 3.5 % [facility] Basophils % 0.8 0.0 - 1.0 % [facility] Absolute Neutrophils 4.6 1.4 - 6.6 10*3/uL [facility] Absolute Lymphocytes 1.4 0.8 - 4.0 10*3/uL [facility] Absolute Monocytes 0.5 0.2 - 1.2 10*3/uL [facility] Absolute Eosinophils 0.1 0.0 - 0.4 10*3/uL [facility] Absolute Basophils 0.1 0.0 - 0.1 10*3/uL [facility] 09/30/2024 3:50 PM AGED OR DISABLED CARE WORKER Niranjan David MD LAB SEND OUTS Final Resul t [facility] [place] [address], * (ABNORMAL) TESTOSTERONE (09/30/2024 3:50 PM AGED OR DISABLED CARE WORKER) TESTOSTERONE, SERUM <3(L) 264 - 916 NG/DL [facility] Comment: ADULT MALE REFERENCE INTERVAL IS BASED ON A POPULATION OF HEALTHY NONOBESE MALES (BMI <30) BETWEEN 19 AND 39 YEARS OLD. CHANDAN ET.AL. JCEM 2017,102;[id number]. PMID: [id number]. Blood 09/30/2024 3:50 PM AGED OR DISABLED CARE WORKER Narrative [facility] - 10/01/2024 11:08 AM AGED OR DISABLED CARE WORKER TESTING PERFORMED AT: [] [facility], [address] [place] [address], [place], [address], PHONE: [phone], PATIENT CARE ASSISTANT: GALE BARAHONA, PHD Release to patient->Immediate us Niranjan David MD CHEMISTRY ORDERABLES Final Result Performing Organization Address [facility]/ZIP Co de Phone Number [facility] [address] [place] [address], [place] [phone] * PSA DIAGNOSTIC,TOTAL (09/30/2024 3:50 PM AGED OR DISABLED CARE WORKER) PSA 0.13 0.00 - 4.00 ng/mL [facility] Comment: Debbie Paramagnetic Particle Chemiluminescent Immunoassay Method. Standardized against the WHO standard. Blood 09/30/2024 3:50 PM AGED OR DISABLED CARE WORKER Narrative [facility] - 10/01/2024 2:14 PM AGED OR DISABLED CARE WORKER Release to patient->Immediate us Niranjan David MD CHEMISTRY ORDERABLES Final Result Performing Organization Address [facility] Co de Phone Number [facility] [address] [place] [address], * (ABNORMAL) LACTATE DEHYDROGENASE (LD) (09/30/2024 3:50 PM AGED OR DISABLED CARE WORKER) LDH 122(L) 140 - 271 U/L [facility] Blood 09/30/2024 3:50 PM AGED OR DISABLED CARE WORKER Narrative [facility] - 10/01/2024 9:41 AM AGED OR DISABLED CARE WORKER Release to patient->Immediate us Niranjan David MD CHEMISTRY ORDERABLES Final Result Performing Organization Address City/[facility]/ZIP Co de Phone Number [facility] [address] [place] [address], * CMP (COMPREHENSIVE METABOLIC PANEL) (09/30/2024 3:50 PM AGED OR DISABLED CARE WORKER) Glucose 101 70 - 105 mg/dL [facility] Blood Urea Nitrogen 16 7 - 25 mg/dL [facility] Creatinine 0.8 0.7 - 1.3 mg/dL [facility] Sodium 140 136 - 145 mEq/L [facility] Potassium 3.8 3.5 - 5.1 mEq/L [facility] Chloride 105 98 - 107 mEq/L [facility] Bicarbonate 24 21 - 31 mEq/L [facility] Total Bilirubin 0.5 0.3 - 1.0 mg/dL [facility] Alk. Phosphatase 82 34 - 104 U/L [facility] Aspartate Aminotransferase 13 13 - 39 U/L [facility] Alanine Aminotransferase 12 7 - 52 U/L [facility] Total Protein 7.1 6.4 - 8.9 g/dL [facility] Albumin 4.4 3.5 - 5.7 g/dL [facility] Calcium 9.7 8.6 - 10.3 mg/dL [facility] Anion Gap 14.8 7.0 - 15.0 mEq/L [facility] Globulin 2.7 2.0 - 3.5 g/dL [facility] EGFR 102 >60 ml/min/1. 73m2 [facility] Comment: This eGFR is calculated using 2020 CKD-EPI Creatinine equation without race modifier based on the NKF-ASN task force recommendations Blood 09/30/2024 3:50 PM AGED OR DISABLED CARE WORKER Narrative [facility] - 10/01/2024 9:40 AM AGED OR DISABLED CARE WORKER Release to patient->Immediate IS THE PATIENT REQUIRED TO BE FASTING FOR 8 HOURS?->No Niranjan David MD CHEMISTRY ORDERABLES Final Result [facility] [place] [address], [place] [phone] from Last 3 Months Insurance MEDICAID [employer] Care Teams Scraper Hand Relationship Specialty Start Date End Date Provider, Unknown UNKNOWN PCP - General 02/19/23 Niranjan David MD Consulting Physician Oncology 03/17/19 Niranjan David MD Consulting Physician Oncology 02/19/23
--- OUTSIDE RECORDS SUMMARY | 2024-12-30 16:40 | XMS_ITS ---
Author Organization [facility] Address [address], [address] [place] [address] Phone Care Team Providers Care Admin Assistant Name Role Phone Niranjan David MD Unavailable [phone] Niranjan David MD Unavailable [phone] Provider, Unknown Primary Care Provider Unavaila ble [...]
--- OUTSIDE RECORDS SUMMARY | 2024-12-30 16:40 | XMS_ITS | Encounter Summary ---
Author Organization [facility] Address [address] [place] [address] Phone Care Team Providers Care Sawmill Equipment Operator Name Role Phone London Ramesh MD Primary Care Provider [phone] Niranjan David MD Unavailable [phone] Niranjan David MD Unavailable [phone] Provider, Unknown Primary Care Provider Unavaila ble Encounter Details Date Type Department Care Team (Late st Contact Info) Description 05/17/2020 Telephone [facility] [address] [address] Niranjan David MD [address] [place] [phone] Social History Tobacco Use Types Packs/Day [...] PM CDT Office Visit [facility] [address] [address] Niranjan David MD [address] [place] [phone] 06/09/2025 1:00 PM RN DIGESTIVE Clinical Support [facility] [address] [address] Nurse, [place] documented as of this encounter Visit Diagnoses Not on filedocumented in this encounter Additional Health Concerns Assessment Noted Time PHQ-9 Depression Total Score: 0 04/20/20 20 11:01 AM CDT documented as of this encounter Care Teams Sawmill Equipment Operator Relationship Specialty Start Date End Date London Ramesh MD PCP - General Internal Medicine 03/17/19 12/03/22 Provider, Unknown UNKNOWN PCP - General 02/19/23 Niranjan David MD Consulting Physician Oncology 03/17/19 Niranjan David MD Consulting Physician Oncology 02/19/23 documented as of this encounter
--- OUTSIDE RECORDS SUMMARY | 2024-12-30 16:40 | XMS_ITS | Encounter Summary ---
Author Organization [facility] Address [address] [place] [address] Phone Care Team Providers Care Property Disposal Officer Name Role Phone London Ramesh MD Primary Care Provider [phone] Niranjan David MD Unavailable Niranjan David MD Unavailable Provider, Unknown Primary Care Provider Unavaila ble Encounter Details Date Type Department Care Team (Late st Contact Info) Description 06/28/2021 Telephone [facility] [address] [address] Niranjan David MD [address] [place] [phone] Social History Tobacco Use Types Packs/Day [...] AND RESCHEDULED APPT. PATIENT HAS A COLD. TENDER PAPER MACHINE documented in this encounter Plan of Treatment Upcoming Encounters Date Type Department Care Team (Late st Contact Info) Description 03/17/2025 1:15 PM CDT Office Visit [facility] [address] [address] Niranjan David MD [address] [place] [phone] 06/09/2025 1:00 PM BACK TENDER PAPER MACHINE Clinical Support [facility] [address] [address] [address] Nurse, Cleo [place] documented as of this encounter Visit Diagnoses Not on filedocumented in this encounter Additional Health Concerns Assessment Noted Time PHQ-9 Depression Total Score: 0 05/17/20 21 11:43 AM CDT documented as of this encounter Care Teams Property Disposal Officer Relationship Specialty Start Date End Date London Ramesh MD PCP - General Internal Medicine 03/17/19 12/03/22 Provider, Unknown UNKNOWN PCP - General 02/19/23 Niranjan David MD Consulting Physician Oncology 03/17/19 Niranjan David MD Consulting Physician Oncology 02/19/23 documented as of this encounter
--- OUTSIDE RECORDS SUMMARY | 2024-12-30 16:40 | XMS_ITS | Encounter Summary ---
Author Organization [facility] Address [address] [place] [address] Phone Care Team Providers Care Car Framer Name Role Phone London Ramesh MD Primary Care Provider [phone] Niranjan David MD Unavailable Niranjan David MD Unavailable Provider, Unknown Primary Care Provider Unavaila ble Reason for Visit * Reason Comments Medication Refill Encounter Details Date Type Department Care Team (Late st Contact Info) Description 04/15/2022 Refill [facility] [place] [address] [facility] [address] [place] [address] Niranjan David MD [address] [place] [address] Medication Refill Social History Tobacco [...] PM CDT Office Visit [facility] [address] [place] [address] Niranjan David MD [address] [place] [phone] 06/09/2025 1:00 PM AIRCRAFT INSTRUMENT TESTER Clinical Support [facility] [address] [facility] [address] [address] [address] Nurse, Cleo [place] documented as of this encounter Visit Diagnoses Diagnosis Prostate cancer (HCC) Malignant neoplasm of prostate documented in this encounter Additional Health Concerns Assessment Noted Time PHQ-9 Depression Total Score: 0 05/17/20 11:43 AM CDT documented as of this encounter Care Teams Car Framer Relationship Specialty Start Date End Date London Ramesh MD PCP - General Internal Medicine 03/17/19 12/03/22 Provider, Unknown UNKNOWN PCP - General 02/19/23 Niranjan David MD Consulting Physician Oncology 03/17/19 Niranjan David MD Consulting Physician Oncology 02/19/23 documented as of this encounter
--- OUTSIDE RECORDS SUMMARY | 2024-12-30 16:40 | XMS_ITS | Encounter Summary ---
Author Organization [facility] Address [address] [place] [address] Phone Care Team Providers Care Boat Oar Maker Name Role Phone Niranjan David MD Unavailable [phone] Niranjan David MD Unavailable [phone] Provider, Unknown Primary Care Provider Unavaila ble Encounter Details Date Type Department Care Team (Late st Contact Info) Description 12/29/2024 Telephone [facility] [address] [phone] Niranajn David MD [address] [place] [address] Social History Tobacco Use Types [...] were not included. Niranjan David MD You; [facility] Nurse Pool48 minutes ago (2:07 PM) [...] CDT Office Visit [facility] [place] [address] [address] [address] Niranjan David MD [address] [place] [phone] 06/09/2025 1:00 PM TILE MECHANIC HELPER Clinical Support [facility] [place] [address] [address] Nurse, Cleo [place] documented as of this encounter Visit Diagnoses Not on filedocumented in this encounter Additional Health Concerns Assessment Noted Time PHQ-9 Depression Total Score: 0 05/17/20 11:43 AM CDT documented as of this encounter Care Teams Boat Oar Maker Relationship Specialty Start Date End Date Provider, Unknown UNKNOWN PCP - General 02/19/23 Niranjan David MD Consulting Physician Oncology 03/17/19 Niranjan David MD Consulting Physician Oncology 02/19/23 documented as of this encounter
[2024-12-30] MEDS: LACTATED RINGERS 1,000 ML 999 ML IV CONT (16:44)
[2024-12-30] MEDS: ONDANSETRON INJ 4 MG/2 ML VIAL IV PUSH (16:45)
[2024-12-30] MEDS: HYDROmorphone HCL INJ (*CRX) 2 MG/ML VIAL 1 MG IV PUSH (16:46)
[2024-12-30 16:47] LABS: Basophils Percent Auto 0.5 % (0.2-1.2); Eosinophils Absolute Auto 0.1 K/mm3 (0-0.3); Eosinophils Percent Auto 1.1 % (0-4.4); Hematocrit 38.8 % (42.0-52.0); Hemoglobin 12.9 g/dL (14.0-18.0); Immature Granulocyte Absolute 0.02 K/mm3 (0.00-0.031); Immature Granulocyte Percent A 0.3 % (0-0.5); Lymphocytes Absolute Auto 1.53 K/mm3 (0.9-3.2); Mean Corpuscular HGB Conc 33.2 g/dl (32-36); Mean Corpuscular Hemoglobin 31.2 pg (26-34); Mean Corpuscular Volume 93.7 fl (80-100); Mean Platelet Volume 10.7 fl (7.4-10.4); Monocytes Absolute Auto 0.6 K/mm3 (0.1-0.6); Monocytes Percent Auto 8.4 % (2.6-8.5); Neutrophils Percent Auto 68.7 % (45.5-73.1); Platelet Count Result 181 k/mm3 (150-375); Red Blood Count 4.14 M/mm3 (4.6-6.20); White Blood Count 7.3 K/mm3 (4.5-10.0)
[2024-12-30 16:58] LABS: Prothrombin Time 13.1 Seconds (11.1-14.7)
[2024-12-30 16:59] LABS: Partial Thromboplastin Time 25.3 Seconds (22.3-36.8)
[2024-12-30 17:03] LABS: Alanine Aminotransferase 37 U/L (6-50); Albumin Level 3.9 g/dL (3.5-5.1); Alkaline Phosphatase 76 U/L (38-126); Anion Gap 7 mmol/L (4-12); Aspartate Amino Transferase 44 U/L (17-59); Bilirubin,Total 0.7 mg/dL (0.2-1.3); Blood Urea Nitrogen 10 mg/dL (9-20); Calcium 9.3 mg/dL (8.4-10.2); Carbon Dioxide 26 mmol/L (22-30); Chloride 108 mmol/L (98-107); Estimated CRCL calculation 84 ml/min; Estimated Glomerular Filt Rate > 60; Glucose 134 mg/dL (65-110); Potassium 2.7 mmol/L (3.4-5.0); Sodium 141 mmol/L (137-145); Total Protein 6.9 g/dL (6.3-8.2)
[2024-12-30 17:05] LABS: Add Urine Microscopic? YES; Appearance Urine Clear (Clear); Bacteria Urine None Seen /hpf; Bilirubin Urine Negative (Negative); Blood Urine 2+ (Negative); Color Urine Yellow (Yellow); Glucose Urine UA Negative (Negative); Ketones Urine Trace mg/dL (Negative); Leukocyte Esterase Ur Negative LEU/UL (Negative); Mucus Urine Present /lpf; Need Manual Microscopic Reviewed; Nitrate Urine Negative (Negative); Protein Urine 1+ mg/dL (Negative); Specific Grav Ur 1.033 (1.001-1.035); Squamous Epithelial Cell Urine None Seen /hpf (Few); Urobilinogen Urine 0.2 mg/dL (<2.0); WBC Urine 0-5 /hpf (0-3); pH Urine 5.5 (5.0-9.0)
[2024-12-30] MEDS: KETOROLAC 15 MG/ML VIAL (*BKC) IV PUSH (18:10)
[2024-12-30] MEDS: POTASSIUM CHLORIDE 20 MEQ PACKET (FOR LIQUID) 40 MEQ PO (18:11)
[2024-12-30] MEDS: TAMSULOSIN HCL 0.4 MG CAPSULE PO (18:12)
[2024-12-30] MEDS: KCL 20 MEQ/SW 100 ML 100 ML 50 MEQ IVPB (18:16)
== END 2024-12-30 20:39 | disposition home or self-care (01) ==
PROVIDERS: Emergency Provider Emergency Medicine; PCP Internal Medicine
DX: N20.2 Calculus of kidney with calculus of ureter (principal); Z85.46 Personal history of malignant neoplasm of prostate; K76.89 Other specified diseases of liver
CPT/HCPCS: 36415; 74018; 74176; 80053; 81001; 85025; 85610; 85730; 96361; 96365; 96375; 99284; A9270; J1171; J1885; J2405; J3480; J7120